=== PATIENT | female | born 1955 | race Caucasian/White ===

== ENCOUNTER 2021-12-15 09:45 | Outpatient (RCR) | payer MEDICARE, SELFPAY ==
--- NOTE | 2021-11-24 18:06 | PT.OPE ---
PT [facility] Outpatient Eval PT [facility] Outpatient Eval Start: 11/24/21 17:19 Freq: Status: Active Protocol: Document 11/24/21 17:20 MARILYNN (Rec: 11/24/21 18:01 MARILYNN Desktop) E-signed By Addison Quarles, PT, ATC Physical Therapy Outpatient Evaluation Insurance Information Recert Due Date 02/24/23 Insurance Name Medicare B Medical Diagnosis R10.31 R lower quadrant pain Treating Diagnosis R groin, thigh, lower leg and foot pain. Referring MD García Subjective Subjective Described as sharp and intense. Sitting always causes symptoms , especially in car. Steroid pack taken last week effective at lessening intensity but it has returned now that she's completed the medication. Pain Comments Range 0-10 Date of Last Physician Visit 11/19/21 Current Work Status Retired Precautions Weight Bearing Status Full Weight Bearing Therapy Limitations/Systems Review Not Limited Objective Range of Motion Trunk ROM WNL's, no pattern caused her symptoms. Passive Hip FLEX, ADDUC and ER created groin pain. Strength R hip FLEX, ABD, ADDUC 4-/5, limited by weakness and pain. L hip and remaining R hip patterns 4+/5. (patient deconditioned) Palpation Tender to light and deep pressure over R gluteus medius , sofi and piriformis. Also tender over hip flexor origin , greater trochanteric bursa and adductor insertion. Balance & Gait Gait is very guarded without any trunk:pelvis rotation. Decreased R leg WB'ing, shortened stride. R knee valgus. Posture Stands with increased lumbar lordosis. Obese Legs possess generalized swelling Sensation/Reflexes Sensation normal and symetric between LE's. Unable to elicit patella or achilles DTR, likely due to inflamation. Other/Pertinent Objective Very difficult to assess R hip flexibility as R knee DJD presence limited both flex and varus motion. R hip did not identify any labral involvement with joint mobility or rotation tests. R anterior iliac rotation, apparent leg length discrepancy in supine. Tight R and L hip flexors and quadriceps. Assessment Assessment/Impression Adelina is a pleasant 66 year old retired woman experiencing intense R inner groin and thigh pain primarily with sitting. Onset of symptoms occurred in August-September while performing water aerobics for her R knee pain. Treadmill work and repeated hip motion seemed to be the cause. PMHx includes:low back surgery (she thinks a discectomy) in 1994 and L ERICA in 2017. She has been receiving R and L knee cortisone injections the past few years. Current symptoms occur after sitting 5-10 minutes, she needs to stand and walk to lessen them. Laying down in side lying also relieves symptoms. Medrol Dosepak and muscle relaxers were effective in lessening pain intensity and delaying onset of symptoms. Difficult to identify source of Adelina's pain. Definitely tender and tight in the R gluteal muscles as well as the R hip capsule. She could be getting some anterior hip impingement from the hip flexion position. Pelvic asymetry seems a direct result of tight hip muscles and repeated guarding over the past 8 weeks. Because she doesn't have any difficulty with back extension motions or positions, I don't feel DJD or stenosis is the cause of her symptoms. A PT program focused towards loosening tight R hip muscles and muscle strengthening of the hip and trunk should be first addressed in the plan of care. Primary Functional Limitations sustained sitting driving Plan of Care Rehabilitation Potential Fair Physical Therapy Goals 1.Decrease R hip and leg pain to 4/10 or less permitting her to sit uninterrupted through a meal. 2.Ability to perform car transfers and sitting x 20 minutes without R hip or leg pain > 4/10. 3.Petroleum with her HEP for core stabilization, hip strengthening and hip stretching. Coordination/Communication With Referral Source Evaluation Billing Untimed Code Treatment Minutes 40 PT Eval No Charge No Complexity Low Certification Information Initial Certification Date 11/24/21 Ending Certification Date 02/24/22
== END 2021-12-16 09:47 | disposition home or self-care (01) ==
PROVIDERS: PCP Family Medicine; Visit Provider Orthopaedic Surgery
DX: R10.31 Right lower quadrant pain (principal); M79.671 Pain in right foot; Z51.89 Encounter for other specified aftercare
CPT/HCPCS: 97110; 97140; 97161

== ENCOUNTER 2022-01-20 08:55 | Day surgery (SDC) | payer MEDICARE, SELFPAY ==
[2022-01-20] VITALS (26 sets, daily range): BP systolic 86–162; BP diastolic 48–105; PULSE 47–95; RESP 16–18; TEMP 36.3–36.6; O2SAT 94–99; BMI 37.2
[2022-01-20] MEDS: ACETAMINOPHEN 500 MG TABLET 1000 MG PO ×3 (09:22→23:39)
[2022-01-20] MEDS: CELECOXIB 200 MG CAPSULE PO ×2 (09:23→21:08)
[2022-01-20] MEDS: OXYCODONE (CR) 10 MG TAB.ER.12H PO (09:23)
[2022-01-20] MEDS: SODIUM CHLORIDE 0.9 % (FLUSH) 10 ML SYRINGE IVF (09:30)
[2022-01-20] MEDS: LACTATED RINGERS 1000 ML 1,000 ML 100 ML IV (09:30)
--- NOTE | 2022-01-20 10:13 | SUR.PREOP ---
Per Dr. García, OK for patient to wear her own TEDS instead of the ones provided by the hospital.
[2022-01-20] MEDS: MIDAZOLAM HCL 1 MG/ML inj IVP (10:40)
[2022-01-20] MEDS: fentaNYL 100 MCG/2 ML inj IVP (10:40)
--- NOTE | 2022-01-20 10:40 | SUR.PREOP ---
TIME?OUT:?1039 PT/Veronique DAVILA RN/Jorge LEMA MDA?VERIFICATION?OF?SURGICAL?SITE,?PROCEDURE,?AND?CONSENT OBTAINED?PRIOR?TO?INVASIVE?PROCEDURE.
[2022-01-20] MEDS: CEFAZOLIN 2 GM INJ IVP (11:37)
--- NOTE | 2022-01-20 12:25 | XR_ITS ---
Patient: KATE SYED Facility:?[facility] Patient ID:?[id number] Site Patient ID:?[id number]. Site :?[id number] Study:?XRay-Knee Right 2 VIEW-01/20/2022 2:08:44 PM Ordering Physician:Luigi Morrow Final Report: Indication: Postop Technique: Two views right knee Findings/Impression: Hardware from a right total knee arthroplasty arthroplasty is in satisfactory position. Bone alignment is normal. No sign of acute fracture. Postop changes are within normal limits. Dictated by Zaire Collazo MD @ 01/21/2022 3:25:37 PM Signed by:?Zaire Collazo MD @01/21/2022 3:25:37 PM (Electronic Signature)
--- NOTE | 2022-01-20 12:37 | W.PM.NB ---
Nerve Block Nerve Block Date Seen: 01/20/22 Type of block requested by surgeon for post-operative analgesia: adductor canal Side: right Time out performed: Yes Verification of patient name: Yes Verification of date of : Yes Site marking: site marked Name of person performing procedure: Isac Continuous monitoring Was continuous monitoring of O2 sat, B/P, cardiac surgeon, recorded every 15 minutes?: Yes Procedure Checklist: sterile prep, needles and gloves Ultrasound guided. Images saved: Yes Medications given in 5ml increments after negative aspiration: Ropivicaine %: 0.5 mL: 20 Needle gauge: 20 Decadron (mg): 10 Precedex (mcg): 25 Patient tolerated procedure well: Yes Additional comments: Needle noted adjacent to nerve Block Charges Block Charge (with Pro Fee): Femoral Nerve Use of Ultrasound Machine for Block: Yes- US Guidance/pain block
--- NOTE | 2022-01-20 12:38 | W.PM.NB ---
Nerve Block Nerve Block Date Seen: 01/20/22 Type of block requested by surgeon for post-operative analgesia: geniculars Side: right Time out performed: Yes Verification of patient name: Yes Verification of date of : Yes Site marking: site marked Name of person performing procedure: Isac Continuous monitoring Was continuous monitoring of O2 sat, B/P, groundwater monitoring technician, recorded every 15 minutes?: Yes Procedure Checklist: sterile prep, needles and gloves Medications given in 5ml increments after negative aspiration: Ropivicaine %: 0.5 mL: 9 Needle gauge: 25 Patient tolerated procedure well: Yes Block Charges Block Charge (with Pro Fee): Genicular Nerve Block Use of Ultrasound Machine for Block: No
--- NOTE | 2022-01-20 13:05 | P.ORPRC_ITS ---
Procedure Note Date of procedure: 01/20/22
--- NOTE | 2022-01-20 13:05 | PM.ORPRC ---
Procedure Note Date of procedure: 01/20/22
--- NOTE | 2022-01-20 13:07 | PM.ORPRC ---
Procedure Note Date of procedure: 01/20/22 Procedure: SURGEON: Cristhian García MD LEGAL PROCESS SPECIALIST: HERMILO Aldana PREOPERATIVE DIAGNOSIS: Right knee osteoarthritis POSTOPERATIVE DIAGNOSIS: Right knee osteoarthritis NAME OF OPERATION: Right total knee arthroplasty ANESTHESIA: Spinal ESTIMATED BLOOD LOSS: 0 mL COMPLICATIONS: None SPECIMENS: None DRAINS: None PREOPERATIVE ANTIBIOTICS: Ancef 2 grams IMPLANTS: 1. J&J Attune # 7 posterior stabilized femur 2. #6 fixed-bearing tibia 3. # 7 posterior stabilized, 5 mm fixed-bearing polyethylene 4. 35 patella INDICATIONS: The patient is a 66-year-old female with a longstanding history of severe, unrelenting right knee pain secondary to end-stage (grade IV) right knee osteoarthritis. Despite appropriate nonoperative management, including activity modification, anti-inflammatories, [id number] pain medication, bracing, physical therapy, and injections they continue to have pain and disability. Operative intervention was offered. The risks, benefits and expected outcomes were discussed in detail. These included but were not limited to: Infection, bleeding, injury to blood vessel or nerve, venous thromboembolism. All questions were answered to their satisfaction. A modifier 22 is appropriate for this case. The patient has a weight of 108 kg, with a BMI of 37 kg/meter squared. There was a 50 mm thick layer of adipose over the extensor mechanism. These factors made the exposure quite difficult and added more than 50% of the time typically required to complete the case. Use of an assistant field hockey coach was necessary throughout the case for patient positioning and safety, soft tissue retraction, and closure. PROCEDURE: Spinal anesthesia was administered. The patient was placed supine on the operating table. The assistant field hockey coach made sure the patient was positioned appropriately. The lower extremity was prepped and draped in the usual sterile fashion. The limb was exsanguinated with the Ferny bandage. The pneumatic tourniquet was inflated to 300 mmHg. A standard anterior incision was made with the knee in flexion. Subcutaneous dissection was sharply taken through fascial layer #1. Full-thickness medial and lateral flaps were elevated. The assistant field hockey coach retracted the soft tissues and protected them throughout the case. A standard medial parapatellar approach was made. The patella was everted. The infrapatellar fat pad was preserved. The menisci and cruciate ligaments were sharply d?brided. Marginal osteophytes were d?brided with the rongeur. The drill was used to penetrate the femoral canal. The canal was aspirated and irrigated with pulse lavage. The intramedullary femoral guide was placed for a 5-degree valgus cut, removing 11 mm off the distal femur. The saw was used to make the cut. Whitesides line and the trans epicondylar axis were marked. The femoral sizing guide was pinned onto the distal femur. Three degrees of external rotation nicely parallels the transepicondylar axis. Pins were placed for posterior referencing. The four-in-one cutting guide was pinned onto the distal femur. The anterior, posterior, and chamfer cuts were made. The assistant field hockey coach protected the collateral ligaments. The box cutting guide was pinned. The box cuts were made. The boxed trial was placed and was an excellent fit. Drill holes for the lugs were made. Attention was then turned to the proximal tibia. The extramedullary tibial guide was placed for a neutral varus/valgus cut with 5 degrees of posterior slope, removing 4 mm based off the medial tibial surface. The assistant field hockey coach protected the collateral ligaments and the neurovascular bundle. The saw was used to make the cut. Trial components were placed. The knee was tight in both flexion and extension. Therefore, we replaced the tibial cutting guide, advancing it 2 more mm distally. The saw was used to make the cut again. Trial components were placed and now the knee is nicely balanced in both flexion and extension. The trial components were removed. The tray was pinned by the assistant field hockey coach and the drill and the punch were used. The tray was removed. The punch was used again. We placed a bone plug in the femoral canal. Attention was then turned to the patella. [place] patellar thickness was 22 mm. The lobster claw resection guide was used with the 9.5 mm hardik. The saw was used to make the cut. Drill holes were made by the assistant field hockey coach. The trial was placed and was an excellent fit. Cancellous surfaces were irrigated with pulse lavage and thoroughly dried by the assistant field hockey coach. We cemented the tibial component, then the femoral component. A trial spacer was placed. The knee was brought into full extension. We then cemented the patellar component. Excessive cement was removed. The cement was allowed to harden. Any remaining excessive cement was removed with the osteotome. We impacted the 5 mm polyethylene onto the tibial tray. The knee was taken through a range of motion and was found to be nicely balanced in both flexion and extension. The patella tracks centrally. The assistant field hockey coach did a three minute dilute Betadine solution soak. The assistant field hockey coach irrigated the wound with 3 liters of normal saline via pulse lavage. The assistant field hockey coach reapproximated the extensor mechanism with #1 Vicryl in an interrupted [id number] fashion. The assistant field hockey coach then ran the extensor mechanism with a #1 PDO Stratafix. The assistant field hockey coach closed the subcutaneous tissues with a 3-0 Stratafix and the skin with a running 3-0 Stratafix in a subcuticular fashion. Glue was used to seal the skin. The assistant field hockey coach placed a dry dressing, JYOTI stocking, and Polar Care. Sponge and needle counts were correct x2. The patient tolerated the procedure well. There were no apparent complications. They were carefully transferred to the hospital bed and taken to the postanesthesia care unit in satisfactory condition. PLAN: The patient will be mobilized with physical therapy. Aspirin will be used for DVT prophylaxis. They will be discharged to home once medically appropriate.
--- NOTE | 2022-01-20 13:56 | W.ANESCHARGE ---
Anesthesia Charges Start Date/Time Anesthesia Start Date: 01/20/22 Anesthesia Start Time: 11:26 Stop Date/Time Anesthesia Stop Date: 01/20/22 Anesthesia Stop Time: 13:52 Summary Emergency: No
--- NOTE | 2022-01-20 15:18 | W.ANESCHARGE ---
Anesthesia Charges Start Date/Time Anesthesia Start Date: 01/20/22 Anesthesia Start Time: 11:26 Stop Date/Time Anesthesia Stop Date: 01/20/22 Anesthesia Stop Time: 13:52 Summary Emergency: No
[2022-01-20] MEDS: HYDROmorphone 0.5 mg/0.5 ml inj IVP (15:30)
--- NOTE | 2022-01-20 16:04 | P.IMCN_ITS ---
Date of Consult Consult date: 01/20/22 Requesting Physician: Orthopedics Primary Care Provider: Earnestine Chavarria MD Consult Narrative Narrative: HOSPITALIST CONSULT Hospital Day # 1 Post Op Day # 0 NAME OF OPERATION:? Right total knee arthroplasty ANESTHESIA:? Spinal ESTIMATED BLOOD LOSS:? 0 mL COMPLICATIONS:? None SPECIMENS:? None DRAINS:? None PREOPERATIVE ANTIBIOTICS:? Ancef 2 grams The hospital medicine team was asked by orthopedic surgery orthopedic surgery team to manage the patient's non-STEMI, AFib, chronic lymphedema, chronic anticoagulation and antiarrhythmic therapy [facility] and Medications and Allergies in the Expanse tabs REVIEW OF SYSTEMS: 12-point ROS completed with patient and negative unless otherwise stated in HPI or below. PHYSICAL EXAM: CODE STATUS: FULL CODE CONSTITUTIONAL: Conversive, good historian. A/O. Knows setting and context. Comfortable. VITAL SIGNS: see record. HEENT: Normocephalic, atraumatic. PERRL, EOMI, conjunctivae pink, no scleral icterus. Ears and nose externally normal. Pharynx normal. NECK: No JVD. No carotid bruit, no thyromegaly, no adenopathy. CHEST: Clear to auscultation bilaterally HEART: No harsh murmurs. S1/S2. ABDOMEN: Flat, soft, nontender. Normal bowel sounds. Moderately obese. EXTREMITIES: Chronic lymphedema noted bilaterally. MUSCULOSKELETAL: Surgical dressing in place without obvious hematoma or neurovascular compromise. NEURO: Cranial nerves intact. Normal affect. No gross deficits. Speech intelligible. SKIN: No rashes, petechiae, concerning changes PSYCHIATRIC: Euthymic. INVESTIGATIONS: EMR Reviewed, placing on telemetry DISPOSITION: MedSurg Recovery; Discharge tomorrow DVT: Agree with ortho plan for DVT prevention, restarting Xarelto in the morning GI: PO intake PFSH PFSH Medical History Acquired lymphedema of lower extremity CAD (coronary artery disease) High cholesterol Non-ST elevation (NSTEMI) myocardial infarction LUCIANA (obstructive sleep apnea) Vertigo Surgical History H/O cardiac radiofrequency ablation History of coronary artery stent placement Hx of colonoscopy Hx of hysterectomy Hx of lumbar discectomy S/P total left hip arthroplasty Status post total knee replacement, right Family History Brother Myocardial infarction Lymphoma Mother Myocardial infarction Venous ulcers of both lower extremities Sister Myocardial infarction History of kidney transplant Pacemaker Father Rheumatoid arthritis Atherosclerosis Social History Smoking Status: Former smoker Do you use any of these nicotine containing products: None How often do you have a drink containing alcohol: monthly or less Alcohol type: beer and hard liquor How many standard drinks containing alcohol do you have on a typical day: 1 or 2 How often do you have six or more drinks on one occasion: Never AUDIT-C Alcohol total score: 1 Non-prescribed substance use: denies use Caffeine: Yes (coffee, 2 cups/day) Meds Home Medications and Allergies Home Medications Medication Instructions Recorded Confirmed Type atorvastatin 40 mg tablet 40 mg PO HS 11/19/21 01/20/22 History rivaroxaban 20 mg tablet 20 mg PO DAILY 11/19/21 01/20/22 History ammonium lactate 12 % topical cream 1 applic topical BID PRN 01/20/22 01/20/22 History amoxicillin 500 mg capsule 2,000 mg PO PRN 01/20/22 01/20/22 History cholecalciferol (vitamin D3) 25 25 mcg PO DAILY 01/20/22 01/20/22 History mcg (1,000 unit) capsule multivitamin (Daily Multi-Vitamin 1 tab PO DAILY 01/20/22 01/20/22 History tablet) nitroglycerin 0.4 mg sublingual 0.4 mg sublingual Q5M PRN 01/20/22 01/20/22 History tablet sotalol 80 mg tablet 40 mg PO BID 01/20/22 01/20/22 History Allergies Allergy/AdvReac Type Severity Reaction Status Date / Time No Known Allergies Allergy Verified 01/20/22 09:10 Exam Const: Vital Signs, click to edit/add: Vital Signs - 24 hr 01/20/22 09:56 01/20/22 10:39 01/20/22 10:45 Temperature 97.9 F Pulse Rate 95 52 L 50 L Respiratory Rate 18 18 18 Blood Pressure 133/69 151/73 H 107/55 L Blood Pressure [Ri ght Arm] Pulse Oximetry 96 98 99 Oxygen Delivery Me thod Room Air Nasal Cannula Nasal Cannula Oxygen Flow Rate 2 2 01/20/22 11:00 01/20/22 11:15 01/20/22 13:52 Temperature Pulse Rate 47 L 50 L 63 Respiratory Rate 18 18 16 Blood Pressure 86/48 L 92/53 L 112/65 Blood Pressure [Ri ght Arm] Pulse Oximetry 98 99 96 Oxygen Delivery Me thod Nasal Cannula Nasal Cannula Room Air Oxygen Flow Rate 2 2 01/20/22 13:55 01/20/22 14:05 01/20/22 13:46 Temperature 97.6 F Pulse Rate 57 L 60 53 L Respiratory Rate 16 16 16 Blood Pressure 116/74 122/76 112/60 Blood Pressure [Ri ght Arm] Pulse Oximetry 96 95 95 Oxygen Delivery Me thod Room Air Room Air Room Air Oxygen Flow Rate 01/20/22 14:00 01/20/22 14:10 01/20/22 14:15 Temperature 97.5 F L Pulse Rate 57 L 61 60 Respiratory Rate 16 16 16 Blood Pressure 97/52 L 117/105 H 132/80 Blood Pressure [Ri ght Arm] Pulse Oximetry 94 96 96 Oxygen Delivery Me thod Room Air Room Air Room Air Oxygen Flow Rate 01/20/22 14:20 01/20/22 14:25 01/20/22 14:31 Temperature 97.5 F L Pulse Rate 50 L 65 57 L Respiratory Rate 16 16 18 Blood Pressure 135/82 133/92 H Blood Pressure [Ri ght Arm] 133/79 Pulse Oximetry 96 97 Oxygen Delivery Me thod Room Air Room Air Room Air Oxygen Flow Rate Assessment and Plan Assessment and plan (1) Status post total knee replacement, right: Problem comment: 01/15 Hospital medicine is happy to follow this patient through to discharge. I will place her on telemetry. We will continue her sotalol at 40 mg b.i.d.. She can resume her Xarelto therapy tomorrow for both her AFib stroke prevention and DVT prophylaxis from her knee replacement. Status: Acute (2) CAD (coronary artery disease): Problem comment: NSTEMI in the setting of new AFIB with RVR in 2016. stent placed in 2016 left circumflex disease Status: Acute (3) LUCIANA (obstructive sleep apnea): Problem comment: Patient brought her home unit. Status: Acute (4) Atrial fibrillation: Problem comment: May 11 first presentation. elevated trop -> cath -> severe dz in the left circumflex/stented. converted spontaneously. returned in Afib w/RVR despite sotalol therapy; complex ablation in 08/10. AFib returned; now on OAC and sotalol. Will place the patient on telemetry. Status: Acute (5) Acquired lymphedema of lower extremity: Problem comment: both legs since 2006 Status: Acute
[2022-01-20] MEDS: OXYCODONE 5 MG TABLET PO ×2 (16:07→23:39)
[2022-01-20] MEDS: CEFAZOLIN 2 GM in 0.9 % SODIUM CHLORIDE Mini-bag 100 ML IVPB (17:45)
--- NOTE | 2022-01-20 18:29 | PC.NURSE ---
PATIENT TO FLOOR AROUND 1430, ALERT AND ORIENTED, PLEASANT AND COOPERATIVE, UP A1 WALKER AND BELT TOLERATED WELL, DRESSING INITIALLY CDI AROUND 1800 SMALL AMOUNT OF DRAINAGE CIRCLED, TOLERATED REGULAR DIET, DECLINED NAUSEA, NO LIGHTHEADEDNESS AND DIZZINESS, PAIN TO RIGHT KNEE 2-5/10 BEING MANAGED PRN OXYCODONE AND SCHEDULED TYLENOL.
[2022-01-20] MEDS: ATORVASTATIN CALCIUM 40 MG TABLET PO (21:07)
[2022-01-20] MEDS: SOTALOL HCL 80 MG TABLET 40 MG PO (21:08)
[2022-01-21] MEDS: CEFAZOLIN 2 GM in 0.9 % SODIUM CHLORIDE Mini-bag 100 ML IVPB ×2 (02:09→09:43)
[2022-01-21] MEDS: HYDROmorphone 0.5 mg/0.5 ml inj IVP (02:19)
[2022-01-21 03:00] VITALS: BP 130/61; PULSE 60; RESP 16; TEMP 36.5; O2SAT 97
[2022-01-21] MEDS: ACETAMINOPHEN 500 MG TABLET 1000 MG PO (05:46)
[2022-01-21 07:00] VITALS: BP 142/74; PULSE 63; PULSE 71; RESP 20; TEMP 36.3; O2SAT 98
[2022-01-21 07:08] LABS: Basophils Percent Auto 0.1 % (0.0-3.0); Hematocrit 36.3 % (33.0-51.0); Hemoglobin* 11.9 gm/dL (12.0-16.0); Immature Granulocytes Abs Auto 0.03 K/uL (0.00-0.30); Lymphocytes Percent Auto 5.5 % (20-44); Mean Corpuscular HGB Conc 33 gm/dL (32-36); Mean Corpuscular Hemoglobin 29 pg (26-34); Mean Corpuscular Volume 88 fL (80-100); Monocytes Percent Auto 7.1 % (0.0-11.0); Platelet Count* 207 K/uL (140-440); Red Blood Count 4.11 m/uL (4.00-5.20); White Blood Count* 11.63 K/uL (4.50-11.00)
[2022-01-21 07:25] LABS: Potassium* 3.7 mmol/L (3.6-5.1); Sodium* 134 mmol/L (135-149)
[2022-01-21 07:28] LABS: Blood Urea Nitrogen* 15 mg/dL (7-30); Creatinine* 0.6 mg/dL (0.5-1.5); Est. Creatinine Clearance* 52.36; Estimated Glomerular Filt Rate 98 ml/min
[2022-01-21 07:32] LABS: Slide Review Reflex No
[2022-01-21 07:45] LABS: INR 1.15 (0.91-1.10); Prothrombin Time 15.1 Seconds
--- NOTE | 2022-01-21 08:56 | PM.ORPN ---
Subjective Subjective Time Seen by Provider: 07:15 Date Seen: 01/21/22 Principal diagnosis: Post right total knee arthroplasty Interval history: Adelina is comfortable this morning. She has family assistance at home and will be planning on discharging to home likely today. Ortho Exam Narrative Exam Narrative: Alert and oriented x3. Patient is in no acute distress. Converses without labored breathing. Hearing is grossly intact. Examination of the right knee shows the dressing is intact. Mild soft tissue edema. Mild effusion. CMS is intact right lower extremity. Bilateral calves are soft and nontender Const Vital Signs, click to edit/add: Vital Signs - 24 hr 01/20/22 09:56 01/20/22 10:39 01/20/22 10:45 Temperature 97.9 F Pulse Rate 95 52 L 50 L Pulse Rate [Pulse Oximeter] Respiratory Rate 18 18 18 Blood Pressure 133/69 151/73 H 107/55 L Blood Pressure [Right Arm] Pulse Oximetry 96 98 99 Oxygen Delivery Method Room Air Nasal Cannula Nasal Cannula Oxygen Flow Rate 2 2 01/20/22 11:00 01/20/22 11:15 01/20/22 13:52 Temperature Pulse Rate 47 L 50 L 63 Pulse Rate [Pulse Oximeter] Respiratory Rate 18 18 16 Blood Pressure 86/48 L 92/53 L 112/65 Blood Pressure [Right Arm] Pulse Oximetry 98 99 96 Oxygen Delivery Method Nasal Cannula Nasal Cannula Room Air Oxygen Flow Rate 2 2 01/20/22 13:55 01/20/22 14:05 01/20/22 13:46 Temperature 97.6 F Pulse Rate 57 L 60 53 L Pulse Rate [Pulse Oximeter] Respiratory Rate 16 16 16 Blood Pressure 116/74 122/76 112/60 Blood Pressure [Right Arm] Pulse Oximetry 96 95 95 Oxygen Delivery Method Room Air Room Air Room Air Oxygen Flow Rate 01/20/22 14:00 01/20/22 14:10 01/20/22 14:15 Temperature 97.5 F L Pulse Rate 57 L 61 60 Pulse Rate [Pulse Oximeter] Respiratory Rate 16 16 16 Blood Pressure 97/52 L 117/105 H 132/80 Blood Pressure [Right Arm] Pulse Oximetry 94 96 96 Oxygen Delivery Method Room Air Room Air Room Air Oxygen Flow Rate 01/20/22 14:20 01/20/22 14:25 01/20/22 14:31 Temperature 97.5 F L Pulse Rate 50 L 65 57 L Pulse Rate [Pulse Oximeter] Respiratory Rate 16 16 18 Blood Pressure 135/82 133/92 H Blood Pressure [Right Arm] 133/79 Pulse Oximetry 96 97 Oxygen Delivery Method Room Air Room Air Room Air Oxygen Flow Rate 01/20/22 14:45 01/20/22 15:15 01/20/22 15:30 Temperature Pulse Rate Pulse Rate [Pulse Oximeter] 56 L 54 L 55 L Respiratory Rate 18 16 16 Blood Pressure Blood Pressure [Right Arm] 141/76 H 160/83 H Pulse Oximetry 96 99 98 Oxygen Delivery Method Room Air Room Air Room Air Oxygen Flow Rate 01/20/22 15:00 01/20/22 16:00 01/20/22 16:30 Temperature Pulse Rate Pulse Rate [Pulse Oximeter] 57 L 59 L 54 L Respiratory Rate 18 16 16 Blood Pressure Blood Pressure [Right Arm] 136/74 152/71 H 149/75 H Pulse Oximetry 95 96 94 Oxygen Delivery Method Room Air Room Air Room Air Oxygen Flow Rate 01/20/22 17:00 01/20/22 18:00 01/20/22 19:00 Temperature 97.3 F L 98 F Pulse Rate Pulse Rate [Pulse Oximeter] 56 L 68 69 Respiratory Rate 16 16 16 Blood Pressure Blood Pressure [Right Arm] 112/82 162/98 H 113/97 H Pulse Oximetry 97 96 96 Oxygen Delivery Method Room Air Room Air Room Air Oxygen Flow Rate 01/20/22 20:00 01/20/22 23:00 01/20/22 23:00 Temperature 97.8 F Pulse Rate 65 Pulse Rate [Pulse Oximeter] 68 65 Respiratory Rate 16 16 Blood Pressure Blood Pressure [Right Arm] 146/69 H Pulse Oximetry 98 Oxygen Delivery Method Room Air Oxygen Flow Rate 01/20/22 23:00 01/21/22 03:00 01/21/22 07:00 Temperature 97.8 F 97.7 F 97.3 F L Pulse Rate Pulse Rate [Pulse Oximeter] 65 60 71 Respiratory Rate 16 16 20 Blood Pressure Blood Pressure [Right Arm] 150/68 H 130/61 142/74 H Pulse Oximetry 99 97 98 Oxygen Delivery Method Room Air Room Air Room Air Oxygen Flow Rate 01/21/22 07:00 Temperature Pulse Rate Pulse Rate [Pulse Oximeter] 71 Respiratory Rate 20 Blood Pressure Blood Pressure [Right Arm] Pulse Oximetry Oxygen Delivery Method Oxygen Flow Rate Assessment and Plan Assessment and plan (1) Status post total knee replacement, right: Problem details: 01/20/2022 Status: Acute Assessment and Plan: Plan for discharge is today to home if she meets discharge criteria. DVT prophylaxis includes Xarelto 20 mg, she has been on this medication prior to surgery, Mariusz stockings x1 month may remove for 1 hr per day, frequent ambulation Remove dressing in 1 week. Observe wound and phone Orthopedics with any questions or concerns Return to clinic in 1 week for a wound check Return to clinic in [address] García Minimize narcotic use. Wean off and discontinue soon as possible. Activities as tolerated. No strenuous activity. Outpatient physical therapy as scheduled. Ice and elevate the operative extremity. No restriction on ice. (2) CAD (coronary artery disease): Problem details: NSTEMI in the setting of new AFIB with RVR in 2015. stent placed in 2016 left circumflex disease Status: Acute (3) LUCIANA (obstructive sleep apnea): Problem details: Patient brought her home unit. Status: Acute (4) Atrial fibrillation: Problem details: May 11 first presentation. elevated trop -> cath -> severe dz in the left circumflex/stented. converted spontaneously. returned in Afib w/RVR despite sotalol therapy; complex ablation in 08/10. AFib returned; now on OAC and sotalol. Will place the patient on telemetry. Status: Acute (5) Acquired lymphedema of lower extremity: Problem details: both legs since 2006 Status: Acute
[2022-01-21] MEDS: SOTALOL HCL 80 MG TABLET 40 MG PO (09:42)
[2022-01-21] MEDS: CELECOXIB 200 MG CAPSULE PO (09:44)
[2022-01-21] MEDS: SENNOSIDES 1 TAB TABLET 2 TAB PO (09:44)
[2022-01-21] MEDS: OXYCODONE 5 MG TABLET PO (09:45)
== END 2022-01-21 11:21 | disposition home or self-care (01) ==
LOC: OR 08:56 → MEDSURG 13:27
PROVIDERS: PCP Family Medicine; Visit Provider Orthopaedic Surgery
PROC: (CPT 27447; principal; 2022-01-20 10:45)
DX: M17.11 Unilateral primary osteoarthritis, right knee (principal); I25.10 Atherosclerotic heart disease of native coronary artery without angina pectoris; G47.33 Obstructive sleep apnea (adult) (pediatric); I48.91 Unspecified atrial fibrillation; I89.0 Lymphedema, not elsewhere classified; Z79.01 Long term (current) use of anticoagulants; I25.2 Old myocardial infarction
CPT/HCPCS: 27447; 01402; 36415; 64447; 64454; 73560; 76942; 82565; 84132; 84295; 84520; 85025; 85610; 97110; 97116; 97161; 97165; A9270; C1776; J0690; J1100; J1170; J2250; J2704; J2795; J3010; J7120

== ENCOUNTER 2022-04-06 08:15 | Outpatient (RCR) | payer MEDICARE, SELFPAY ==
--- NOTE | 2022-01-07 12:39 | PT.OPE ---
PT [facility] Outpatient Eval PT [facility] Outpatient Eval Start: 01/07/22 11:02 Freq: Status: Active Protocol: Document 01/07/22 11:14 THEO (Rec: 01/07/22 12:13 THEO Desktop) E-signed By Addison Quarles, PT, ATC Physical Therapy Outpatient Evaluation Insurance Information Recert Due Date 04/08/22 Insurance Name Medicare B Medical Diagnosis End-stage lateral and patellofemoral compartment osteoarthritis with bone-on- bone joint space narrowing. Treating Diagnosis R knee pain R knee stiffness Referring MD García Subjective Subjective R knee pain and stiffness exceeding one year. Cortisone injection in July was effective but knee again worsened when beginning Aquatic Therapy in September. Treated for R hip bursitis mid summer-October. Determined that compensation for R knee O.A. was likely the primary cause for the R hip symptoms. Saw Dr Azeem García who decided to perform the R TKA on 01/20/22. Adelina was content with the plan for surgery. Now she has some concern for the initial pain symptoms that will likely follow the upcoming procedure. Pain Comments Average pain, daily ache 4/ 10 High 10/10 Date of Last Physician Visit 11/26/21 Date of Next Physician Visit 01/20/22 Date of Surgery (If applicable) 01/20/22 Current Work Status Retired Preferred Name Adelina Precautions Weight Bearing Status Full Weight Bearing Therapy Limitations/Systems Review Not Limited Objective Range of Motion R 5-100 degrees Strength R hip 5/5 all patterns, Flex and Adduc create inner groin soreness. R knee ext 4/5, flex 5/5, L knee 5/5 ext and flex Palpation Tender along medial joint line and inferiomedial patella Balance & Gait Walks without assistive device with symmetric LE mechanics. Decreased arm swing or trunk rotation. Posture Slight increase is size vs L knee. Active R terminal ext deficit in standing and walking. Assessment Assessment/Impression Adelina is a pleasant 66 year old woman referred today for pre -op TKA training. She is well known in therapy because of treatment she received this summer for her R hip. She is looking forward to her upcoming procedure knowing her pain should lessen once performed and lead to improved overall function. She struggles with most mobility- extended walking, squatting to access lower cupboards and climbing/descending stairs. Her R hip symptoms were thought to be a direct source of compensation for the R knee OA. Following todays visit, I am confident in her preparation for her procedure both mentally and physically. She demonstrates safe and effective transfers, gait using the walker and proper sequencing with stairs. We will follow up with her again in PT two days after her R TKA procedure. Primary Functional Limitations Stairs, ascent > descent Squatting for bottom cupboards Car transfers Plan of Care Rehabilitation Potential Excellent Physical Therapy Goals 1.To perform and demonstrate independence with her home program for TKA phase 1 ex.s following her pre-op visit. 2.Demonstrate correct usage of front wheeled walker x 250 feet. 3.Demonstrate proper sit to/ from stand performance-placing involved leg out and in safe position. Coordination/Communication With Referral Source Treatment Plan/Direct Interventions Therapeutic Exercises Frequency/Duration Single visit pre-op 2x/week x 8-10 weeks post op 1x week week 11-16 if needed. Patient Will Be Discharged From Therapy Independent w/HEP, Independently Progressing Evaluation Billing Untimed Code Treatment Minutes 30 PT Eval No Charge No Complexity Low Certification Information Initial Certification Date 01/07/22 Ending Certification Date 04/08/22 Physician Comment/Change Comment or Changes Physician NPI Number #
== END 2022-04-13 16:13 | disposition home or self-care (01) ==
PROVIDERS: PCP Family Medicine; Visit Provider Orthopaedic Surgery
DX: M17.11 Unilateral primary osteoarthritis, right knee (principal); Z51.89 Encounter for other specified aftercare
CPT/HCPCS: 97016; 97110; 97112; 97116; 97140; 97161; 97164

== ENCOUNTER 2023-10-05 06:10 | Day surgery (SDC) | payer MEDICARE, SELFPAY ==
[2023-10-05] VITALS (24 sets, daily range): BP systolic 112–157; BP diastolic 55–99; PULSE 48–70; RESP 16–18; TEMP 35.5–37; O2SAT 95–99; BMI 36.7
[2023-10-05] MEDS: LACTATED RINGERS 1000 ML 1,000 ML 100 ML IV ×2 (06:30→10:46)
[2023-10-05] MEDS: CELECOXIB 200 MG CAPSULE PO (06:32)
[2023-10-05] MEDS: SODIUM CHLORIDE 0.9 % (FLUSH) 10 ML SYRINGE IVF (06:32)
[2023-10-05] MEDS: ACETAMINOPHEN 500 MG TABLET 1000 MG PO ×3 (06:32→18:42)
[2023-10-05] MEDS: OXYCODONE (CR) 10 MG TAB.ER.12H PO (06:32)
[2023-10-05] MEDS: MIDAZOLAM HCL 1 MG/ML inj IVP (07:13)
--- NOTE | 2023-10-05 07:19 | P.NB_ITS ---
Nerve Block Nerve Block Time Seen by Provider: 07:18 Date Seen: 10/05/23 Type of block requested by surgeon for post-operative analgesia: SARA/LFCN Side: right Time out performed: Yes Verification of patient name: Yes Verification of date of : Yes Site marking: site marked Name of person performing procedure: Isac Continuous monitoring Was continuous monitoring of O2 sat, B/P, playground monitor, recorded every 15 minutes?: Yes Procedure Checklist: sterile prep, needles and gloves Ultrasound guided. Images saved: Yes Medications given in 5ml increments after negative aspiration: Ropivicaine %: 0.5 mL: 30 Needle gauge: 20 Decadron (mg): 10 Precedex (mcg): 25 Patient tolerated procedure well: Yes Additional comments: Needle noted below psoas tendon needle noted adjacent to LFCN Block Charges Block Charge (with Pro Fee): Other Periph Nerve Block Use of Ultrasound Machine for Block: Yes- US Guidance/pain block
--- NOTE | 2023-10-05 07:20 | W.ANESCHARGE ---
Anesthesia Charges Start Date/Time Anesthesia Start Date: 10/05/23 Anesthesia Start Time: 11:26 Stop Date/Time Anesthesia Stop Date: 10/05/23 Anesthesia Stop Time: 13:52 Summary Extremes of Age - Over 70 or under 1: MDA
--- NOTE | 2023-10-05 07:21 | SUR.PREOP ---
TIME?OUT:?07 PT/RN/MDA?VERIFICATION?OF?SURGICAL?SITE,?PROCEDURE,?AND?CONSENT OBTAINED?PRIOR?TO?INVASIVE?PROCEDURE.
[2023-10-05] MEDS: fentaNYL 100 MCG/2 ML inj IVP (07:23)
--- NOTE | 2023-10-05 07:45 | CRLHL7_ITS ---
For Patients: As a result of the Cures Act, medical imaging exams and procedure reports are released immediately into your electronic medical record. You may view this report before your referring provider. If you have questions, please contact your health care provider. Indication: Hip replacement surgery Technique: AP hip fluoroscopic image. Fluoroscopy time 67.9 seconds. Findings/Impression: Hardware from a right total hip arthroplasty is in satisfactory position. Dictated by Zaire Collazo MD @ 10/05/2023 12:06:56 PM (Electronically Signed)
[2023-10-05] MEDS: CEFAZOLIN 2 GM INJ IVP (08:03)
[2023-10-05] MEDS: TRANEXAMIC ACID 100 MG/ML INJ 1000 MG IV (08:19)
--- NOTE | 2023-10-05 09:13 | SUR.PREOP ---
No T&S drawn on patient prior to taking back for procedure. Care Manager Cna called back to OR and Dr. García verbalized he did not need it drawn. Care Manager Cna also checked with Anesthesia in room who also agreed T&S did not need to be drawn.
--- NOTE | 2023-10-05 09:47 | CRLHL7_ITS ---
For Patients: As a result of the Century Cures Act, medical imaging exams and procedure reports are released immediately into your electronic medical record. You may view this report before your referring provider. If you have questions, please contact your health care provider. Indication: POST OP RIGHT HIP Technique: AP hip centered pelvic film and lateral view right hip. Findings/Impression: Hardware from a right total hip arthroplasty is in satisfactory position. Bone alignment is normal. No sign of acute fracture. Postop changes are within normal limits. Dictated by Zaire Collazo MD @ 10/05/2023 12:07:53 PM (Electronically Signed)
--- NOTE | 2023-10-05 09:50 | PM.ORPRC ---
Procedure Note Date of procedure: 10/05/23 Procedure: PREOPERATIVE DIAGNOSIS: Right hip osteoarthritis POSTOPERATIVE DIAGNOSIS: Right hip osteoarthritis NAME OF OPERATION: Right total hip arthroplasty SURGEON: Cristhian Garíca MD ROUTE DRIVER: Angie Flores PA-C, Amna Levine PA-C IMPLANTS: 1. [employer] [place] # 52 sector ingrowth cup 2. 36 x 52 +4 neutral polyethylene 3. [employer] # 6 standard collared ingrowth stem 4. 36 + 1.5 ceramic femoral head ANESTHESIA: General ESTIMATED BLOOD LOSS: 600 cc COMPLICATIONS: None SPECIMENS: None DRAINS: None PREOPERATIVE ANTIBIOTICS: Ancef 2 grams INDICATIONS: The patient is a 68-year-old with a longstanding history of severe, unrelenting right hip pain secondary to end-stage right hip osteoarthritis. Despite appropriate nonoperative management, including activity modification, use of an assist device, anti-inflammatories, [id number] pain medication, physical therapy and injections, they continue to have pain and disability. Operative intervention was offered. The risks, benefits and expected outcomes were discussed in detail. These included but were not limited to: Infection, bleeding, injury to blood vessel or nerve, venous thromboembolism. All questions were answered to their satisfaction. Use of an criminal legal assistant was necessary throughout the case for patient positioning and safety, soft tissue retraction and closure. A modifier 22 should be added to this case. The patient's weight of 106 kg with a BMI of 37 made exposure quite difficult. This more than doubled the time typically required to complete the case. PROCEDURE: The patient was placed supine on the Lawrence table. General anesthesia was administered. The criminal legal assistant made sure the patient was properly positioned. The right hip was prepped and draped in the usual sterile fashion. The image intensifier was brought in for a perfect AP pelvis and a perfect double tear drop AP view of each hip which were used for intraoperative templating with our fluoroscopic guide. An oblique incision was made 3 cm distal and 3 cm lateral to the anterior superior iliac spine. The criminal legal assistant retracted the soft tissues to protect them. Subcutaneous dissection was taken with electrocautery to the superficial fascia. The fascia was divided in line with the incision. Blunt dissection was carried medially to the tensor fascia marcial and sartorius interval. Deep dissection was carried with electrocautery. The circumflex vessels were cauterized and divided. The capsule was exposed and then divided in a T-fashion, tagged with #1 Ethibond sutures. Retractors were placed in the joint, held by the criminal legal assistant. The corkscrew was placed in the femoral head. The neck cut was made in the subcapital region. We made a second neck cut more distal. The napkin ring of bone was removed. The femoral head was removed intact. Acetabular retractors were placed, held by the criminal legal assistant. The labrum was sharply debrided. The capsule was released. The 43 mm reamer was used to the true medial wall. We then enlarged in 2 mm increments using the image intensifier for our reamer placement. We impacted the cup which had excellent purchase. We placed the polyethylene. Attention was then turned to the proximal femur. The limb was placed in 140 degrees of external rotation, maximum extension and adduction. A significant amount of time was spent releasing the capsule to allow us to deliver the femur into the wound and complete the femoral side safely. Retractors were held by the criminal legal assistant throughout the femoral preparation. The box toe buffer and canal finder were used. Broaches were used to a stable size. The calcar reamer was used. Trial components were placed. The hip was reduced and was found to be stable with appropriate soft tissue tension. Length and offset had been nicely restored using the image intensifier and our fluoroscopic guide. Trial components were removed. The stem was impacted. We placed the femoral head. Again, the hip was reduced and was found to be stable with appropriate soft tissue tension. Length and offset had been nicely restored. The criminal legal assistant did a three minute dilute Betadine solution soak. The criminal legal assistant irrigated the wound with 3 liters of normal saline via pulse lavage. The criminal legal assistant repaired the anterior capsule with a #1 Vicryl and our previously placed Ethibond sutures. The criminal legal assistant closed the fascia over the tensor fascia marcial with a #1 PDO Stratafix, subcutaneous tissues with 2-0 Vicryl, skin with a running 3-0 Stratafix and glue. A dry dressing was applied by the criminal legal assistant. Sponge and needle counts were correct x 2. The patient tolerated the procedure well; there were no apparent complications. They were awakened and extubated in the operating room, sent to the Post-Anesthesia Care Unit in satisfactory condition. PLAN: 1. The patient will be mobilized with physical therapy, weight-bearing as tolerates 2. The usual dose of Eliquis can be restarted for DVT prophylaxis 3. The patient will be discharged once medically appropriate
[2023-10-05] MEDS: fentaNYL 100 MCG/2 ML inj 50 MCG IVP ×2 (10:39→10:40)
[2023-10-05] MEDS: HYDROmorphone 0.5 mg/0.5 ml inj IVP (11:42)
[2023-10-05] MEDS: CEFAZOLIN 2 GM in 0.9 % SODIUM CHLORIDE Mini-bag 100 ML IVPB (16:30)
--- NOTE | 2023-10-05 17:55 | PC.NURSE ---
End of Shift: Patient pleasant and cooperative, A&O. VSS, afebrile. Patient reports pain on her right hip rating a 2 out of 10, declines PRN medication. 1A with walker and gaitbelt to bathroom, tolerated well. Dressing C/D/I.
--- NOTE | 2023-10-05 18:33 | P.IMCN_ITS ---
Date of Consult Patient: Lisa Patient Consult date: 10/05/23 Requesting Physician: Orthopedics Primary Care Provider: Earnestine Chavarria MD Consult Narrative Narrative: Adelina Parisi is a 68 year old female with coronary artery disease, atrial fibrillation, obstructive sleep apnea and chronic lymphedema seen in consultation for management of medical problems following right total hip arthr oplasty. Consultation requested by Dr. García. He performed this procedure today without complications. Estimated blood loss of 600 mL. Postoperatively she reports feeling well except some lightheadedness when she was up to the bathroom. Mild nausea without vomiting. No chills. No dyspnea. Previous orthopedic surgeries without complications. No previous history of problems with anesthesia, bleeding or clotting. Preop physical did not identify any significant medical problems to be addressed in the perioperative. She is on Eliquis for atrial fibrillation and has held that for the last 3 days. Review of Systems Narrative: She reports no recent concerns of illness or injury. She reports her hip pain postoperatively is already better than which she experienced when she came to the hospital today. [facility] Medical History (Updated 10/05/23 @ 18:47 by Ronal Marrero MD) History of common carotid artery stent placement ?Z98.890 - Other specified postprocedural states (ICD-10) ?Z95.828 - Presence of other vascular implants and grafts (ICD-10) Vertigo ?R42 - Dizziness and giddiness (ICD-10) LUCIANA (obstructive sleep apnea) ?G47.33 - Obstructive sleep apnea (adult) (pediatric) (ICD-10) CAD (coronary artery disease) ?I25.10 - Atherosclerotic heart disease of [place] coronary artery without angina pectoris (ICD-10) Acquired lymphedema of lower extremity ?I89.0 - Lymphedema, not elsewhere classified (ICD-10) High cholesterol ?E78.00 - Pure hypercholesterolemia, unspecified (ICD-10) Non-ST elevation (NSTEMI) myocardial infarction ?I21.4 - Non-ST elevation (NSTEMI) myocardial infarction (ICD-10) Surgical History (Updated 10/05/23 @ 18:47 by Ronal Marrero MD) S/P total right hip arthroplasty ?Z96.641 - Presence of right artificial hip joint (ICD-10) S/P ablation of atrial fibrillation ?Z98.890 - Other specified postprocedural states (ICD-10) ?Z86.79 - Personal history of other diseases of the circulatory system (ICD- 10) History of ankle surgery (04/22/23) ?Z98.890 - Other specified postprocedural states (ICD-10) Status post total knee replacement, right (01/20/22) ?Z96.651 - Presence of right artificial knee joint (ICD-10) H/O cardiac radiofrequency ablation ?Z98.890 - Other specified postprocedural states (ICD-10) History of coronary artery stent placement ?Z95.5 - Presence of coronary angioplasty implant and graft (ICD-10) Hx of lumbar discectomy ?Z98.890 - Other specified postprocedural states (ICD-10) Hx of hysterectomy ?Z90.710 - Acquired absence of both cervix and uterus (ICD-10) Hx of colonoscopy ?Z98.890 - Other specified postprocedural states (ICD-10) S/P total left hip arthroplasty (~01/2017) ?Z96.642 - Presence of left artificial hip joint (ICD-10) Family History Brother Myocardial infarction Lymphoma Mother Myocardial infarction Venous ulcers of both lower extremities Sister Myocardial infarction History of kidney transplant Pacemaker Father Rheumatoid arthritis Atherosclerosis Social History (Updated 10/05/23 @ 18:43 by Ronal Marrero MD) Narrative: She lives with her in [place]. They live in a house where she can live on 1 level. , Bebeto, is healthcare power of assistant prosecuting attorney. Code status is full. She is a former cigarette smoker having quit in 2001. She rarely drinks alcohol What is your current living situation?: I presently have a place to live Problems where you live: no known problems Problems where you live details: n/a In the past 12 months, utilities in danger of being shut off: no In past 12 months, lack of transportation kept you from medical appts, meetings, work, or getting things needed for daily living: no In the past 12 mos, have been you worried that your food would run out before you had money to buy more?: never true In the past 12 mos, the food you bought just didn't last and you didn't have money to buy more?: never true Smoking Status: Never smoker Do you use any of these nicotine containing products: None How often do you have a drink containing alcohol: monthly or less Alcohol type: beer and hard liquor How many standard drinks containing alcohol do you have on a typical day: 1 or 2 How often do you have six or more drinks on one occasion: Never AUDIT-C Alcohol total score: 1 Non-prescribed substance use: denies use Caffeine: Yes (2 c/day) How often does anyone, including family, friends and others, physically hurt you : never How often does anyone, including family, friends and others, insult or talk down to you: never How often does anyone, including family, friends and others, threaten you with harm: never How often does anyone, including family, friends and others, scream or curse at you: never service: No Meds Home Medications and Allergies Home Medications ?Medication ?Instructions ?Recorded ?Confirmed ?Type atorvastatin 40 mg tablet 40 mg PO HS 11/19/21 10/05/23 History amoxicillin 500 mg capsule 2,000 mg PO PRN 01/20/22 10/05/23 History cholecalciferol (vitamin D3) 25 25 mcg PO DAILY 01/20/22 10/05/23 History mcg (1,000 unit) capsule multivitamin (Daily Multi-Vitamin 1 tab PO DAILY 01/20/22 10/05/23 History tablet) nitroglycerin 0.4 mg sublingual 0.4 mg sublingual Q5M PRN 01/20/22 10/05/23 History tablet sotalol 80 mg tablet 40 mg PO BID 01/20/22 10/05/23 History apixaban 5 mg tablet 5 mg PO BID 09/28/23 10/05/23 History metoprolol tartrate 25 mg tablet 25 mg PO QDAY PRN atrial 09/28/23 10/05/23 History fibrillation Allergies Allergy/AdvReac Type Severity Reaction Status Date / Time adhesive tape Allergy Mild Verified 10/05/23 06:16 Exam Narrative: Exam Narrative: She is alert and appears in no distress. Speech is normal. Oropharynx with small airway. Neck is supple out mass or adenopathy. Respirations are clear to auscultation. Cardiovascular: S1, S2, somewhat irregular rhythm. No murmur gallop or rub. Abdomen is soft without tenderness or mass. Bowel sounds are active. Right Hip with bandage over anterior incision. No significant drainage bruising or erythema. Distally she has intact pulses and sensation and strength in her feet and ankles. Moderate bilateral leg edema. No rash Const: Vital Signs, click to edit/add: Vital Signs - 24 hr 10/05/23 07:03 10/05/23 07:13 10/05/23 10:39 Temperature 97.6 F 97.2 F L Pulse Rate 67 57 L 60 Pulse Rate [Pulse Oximeter] Respiratory Rate 16 16 16 Blood Pressure 134/65 133/63 141/89 H Pulse Oximetry 97 98 97 [facility] Room Air Room Air 10/05/23 10:40 10/05/23 10:45 10/05/23 10:50 Temperature 97.3 F L Pulse Rate 54 L 53 L 53 L Pulse Rate [Pulse Oximeter] Respiratory Rate 16 16 16 Blood Pressure 139/80 144/99 H 140/89 H Pulse Oximetry 97 99 98 Oxygen Delivery [facility] Room Air Room Air Room Air 10/05/23 10:55 10/05/23 11:00 10/05/23 11:05 Temperature 97.6 F Pulse Rate 51 L 52 L 49 L Pulse Rate [Pulse Oximeter] Respiratory Rate 16 16 16 Blood Pressure 138/72 135/89 145/73 H Pulse Oximetry 98 96 98 [facility] Room Air Room Air Room Air 10/05/23 11:10 10/05/23 11:13 10/05/23 11:21 Temperature Pulse Rate 52 L 50 L Pulse Rate [Pulse Oximeter] Respiratory Rate 16 16 16 Blood Pressure 145/78 H 138/80 Pulse Oximetry 98 98 97 [facility] Room Air Room Air Room Air 10/05/23 11:21 10/05/23 11:30 10/05/23 11:45 Temperature 95.9 F L 96.5 F L Pulse Rate 49 L 49 L 49 L Pulse Rate [Pulse Oximeter] Respiratory Rate 16 16 16 Blood Pressure 133/71 125/82 112/55 L Pulse Oximetry 97 95 98 [facility] Room Air Room Air Room Air 10/05/23 12:00 10/05/23 12:15 10/05/23 12:45 Temperature 97.3 F L Pulse Rate 48 L 49 L 49 L Pulse Rate [Pulse Oximeter] Respiratory Rate 16 16 16 Blood Pressure 143/69 H 141/66 H 130/65 Pulse Oximetry 97 98 97 Oxygen Delivery [facility] Room Air Room Air Room Air 10/05/23 13:15 10/05/23 14:00 10/05/23 15:00 Temperature 97.5 F L Pulse Rate 50 L 54 L Pulse Rate [Pulse Oximeter] Respiratory Rate 16 16 16 Blood Pressure 157/80 H 136/89 Pulse Oximetry 97 98 96 Oxygen Delivery [facility] Room Air Room Air Room Air 10/05/23 15:00 10/05/23 16:00 10/05/23 17:00 Temperature 97.4 F L 97.8 F Pulse Rate 55 L 56 L Pulse Rate [Pulse Oximeter] 55 L Respiratory Rate 16 18 Blood Pressure 142/77 H 147/72 H Pulse Oximetry 96 99 Oxygen Delivery [facility] Room Air Room Air Documenting provider has reviewed patient's vital signs: yes Assessment and Plan Assessment and plan (1) S/P total right hip arthroplasty: Problem comment: Dr. García, on October 05 2023. No complications Status: Acute (2) Acquired lymphedema of lower extremity: Problem comment: both legs since 2006 Status: Acute (3) LUCIANA (obstructive sleep apnea): Problem comment: Patient brought her home unit. Status: Acute (4) Atrial fibrillation: Problem comment: On sotalol and apixaban. Resume sotalol tonight and apixaban tomorrow Status: Acute Plan Patient will be monitored in the hospital for complications of surgery, management of chronic medical problems postoperatively and routine pain management and therapy. Anticipate discharge to home tomorrow with her . Total time spent today is 50 minutes, 30 minutes in coordination of care discussing with patient and ongoing evaluation and management of postoperative care
[2023-10-05] MEDS: SENNOSIDES 1 TAB TABLET 2 TAB PO (20:58)
[2023-10-05] MEDS: SOTALOL HCL 80 MG TABLET 40 MG PO (20:58)
[2023-10-05] MEDS: ATORVASTATIN CALCIUM 40 MG TABLET PO (20:59)
[2023-10-06] MEDS: CEFAZOLIN 2 GM in 0.9 % SODIUM CHLORIDE Mini-bag 100 ML IVPB (00:28)
[2023-10-06] MEDS: ACETAMINOPHEN 500 MG TABLET 1000 MG PO ×2 (00:29→06:41)
[2023-10-06 03:00] VITALS: BP 134/81; PULSE 78; RESP 16; TEMP 36.1; O2SAT 97
[2023-10-06 06:27] LABS: Basophils Percent Auto 0.1 % (0.0-3.0); Hematocrit 36.2 % (33.0-51.0); Hemoglobin* 11.8 gm/dL (12.0-16.0); Immature Granulocytes Pct Auto 0.3 %; Lymphocytes Percent Auto 6.4 % (20-44); Mean Corpuscular HGB Conc 33 gm/dL (32-36); Mean Corpuscular Hemoglobin 29 pg (26-34); Mean Corpuscular Volume 89 fL (80-100); Monocytes Percent Auto 7.5 % (0.0-11.0); Neutrophils Percent Auto 85.7 % (42.0-72.0); Platelet Count* 209 K/uL (140-440); Red Blood Count 4.05 m/uL (4.00-5.20); White Blood Count* 11.83 K/uL (4.50-11.00)
[2023-10-06 06:31] LABS: Slide Review Reflex No
[2023-10-06 06:42] LABS: Sodium* 136 mmol/L (135-149)
[2023-10-06 06:43] LABS: Potassium* 3.7 mmol/L (3.6-5.1)
[2023-10-06 06:45] LABS: Creatinine* 0.6 mg/dL (0.5-1.5); Est. Creatinine Clearance* 50.91; Estimated Glomerular Filt Rate 97 ml/min
[2023-10-06 06:46] LABS: Blood Urea Nitrogen* 14 mg/dL (7-30)
--- NOTE | 2023-10-06 06:59 | PC.NURSE ---
End of shift note [id number]: Pt alert & oriented x 4 and using call light appropriately. She has been continent of bladder and transfers/ambulates with SBA using FWW and gait belt. Pt wears home CPAP at [facility] d/t hx of LUCIANA. VSS and pt has been afebrile. Incision to R hip noted to be C/D/I. Pt reports pain to R hip/leg has been minimal 05/05 with scheduled Tylenol administered along with providing ice. IV to R hand patent and SL.?Pt has been denying pain when asked.
[2023-10-06 07:00] VITALS: BP 127/78; PULSE 78; PULSE 81; RESP 16; TEMP 36.7; O2SAT 96; O2SAT 97
[2023-10-06] MEDS: SENNOSIDES 1 TAB TABLET 2 TAB PO (08:01)
[2023-10-06] MEDS: SOTALOL HCL 80 MG TABLET 40 MG PO (08:07)
[2023-10-06] MEDS: MULTIVITAMIN/MINERALS 1 TABLET 1 TAB PO (08:09)
[2023-10-06] MEDS: APIXABAN 5 MG TABLET PO (08:25)
--- NOTE | 2023-10-06 08:30 | PM.ORPN ---
Subjective Subjective Time Seen by Provider: 08:30 Date Seen: 10/06/23 Principal diagnosis: Right hip replacement 10/05/2023 Interval history: Adelina is comfortable. She will discharge today with her . Ortho Exam Narrative Exam Narrative: Alert and oriented x3. Patient is in no acute distress. Converses without labored breathing. Hearing is grossly intact. Ambulates with a walker. Examination of the right hip shows the dressing is intact. Mild soft tissue edema. No erythema or warmth or sign of infection. Able to straight leg raise. CMS intact right lower extremity. Calves are soft and nontender. Const Vital Signs, click to edit/add: Vital Signs - 24 hr 10/05/23 10:39 10/05/23 10:40 10/05/23 10:45 Temperature 97.2 F L Pulse Rate 60 54 L 53 L Pulse Rate [Pulse Oximeter] Respiratory Rate 16 16 16 Blood Pressure 141/89 H 139/80 144/99 H Blood Pressure [Left Arm] Blood Pressure [Right Arm] Pulse Oximetry 97 97 99 Oxygen Delivery Method Room Air Room Air Room Air 10/05/23 10:50 10/05/23 10:55 10/05/23 11:00 Temperature 97.3 F L Pulse Rate 53 L 51 L 52 L Pulse Rate [Pulse Oximeter] Respiratory Rate 16 16 16 Blood Pressure 140/89 H 138/72 135/89 Blood Pressure [Left Arm] Blood Pressure [Right Arm] Pulse Oximetry 98 98 96 Oxygen Delivery Method Room Air Room Air Room Air 10/05/23 11:05 10/05/23 11:10 10/05/23 11:13 Temperature 97.6 F Pulse Rate 49 L 52 L 50 L Pulse Rate [Pulse Oximeter] Respiratory Rate 16 16 16 Blood Pressure 145/73 H 145/78 H 138/80 Blood Pressure [Left Arm] Blood Pressure [Right Arm] Pulse Oximetry 98 98 98 Oxygen Delivery Method Room Air Room Air Room Air 10/05/23 11:21 10/05/23 11:21 10/05/23 11:30 Temperature 95.9 F L Pulse Rate 49 L 49 L Pulse Rate [Pulse Oximeter] Respiratory Rate 16 16 16 Blood Pressure 133/71 125/82 Blood Pressure [Left Arm] Blood Pressure [Right Arm] Pulse Oximetry 97 97 95 Oxygen Delivery Method Room Air Room Air Room Air 10/05/23 11:45 10/05/23 12:00 10/05/23 12:15 Temperature 96.5 F L Pulse Rate 49 L 48 L 49 L Pulse Rate [Pulse Oximeter] Respiratory Rate 16 16 16 Blood Pressure 112/55 L 143/69 H 141/66 H Blood Pressure [Left Arm] Blood Pressure [Right Arm] Pulse Oximetry 98 97 98 Oxygen Delivery Method Room Air Room Air Room Air 10/05/23 12:45 10/05/23 13:15 10/05/23 14:00 Temperature 97.3 F L 97.5 F L Pulse Rate 49 L 50 L 54 L Pulse Rate [Pulse Oximeter] Respiratory Rate 16 16 16 Blood Pressure 130/65 157/80 H 136/89 Blood Pressure [Left Arm] Blood Pressure [Right Arm] Pulse Oximetry 97 97 98 Oxygen Delivery Method Room Air Room Air Room Air 10/05/23 15:00 10/05/23 15:00 10/05/23 16:00 Temperature 97.4 F L Pulse Rate 55 L Pulse Rate [Pulse Oximeter] 55 L Respiratory Rate 16 16 Blood Pressure 142/77 H Blood Pressure [Left Arm] Blood Pressure [Right Arm] Pulse Oximetry 96 96 Oxygen Delivery Method Room Air Room Air 10/05/23 17:00 10/05/23 19:37 10/05/23 23:00 Temperature 97.8 F 98.6 F Pulse Rate 56 L Pulse Rate [Pulse Oximeter] 70 70 Respiratory Rate 18 16 16 Blood Pressure 147/72 H Blood Pressure [Left Arm] Blood Pressure [Right Arm] Pulse Oximetry 99 98 Oxygen Delivery Method Room Air Room Air 10/05/23 23:00 10/05/23 23:00 10/06/23 03:00 Temperature 97.3 F L 97.0 F L Pulse Rate Pulse Rate [Pulse Oximeter] 69 78 Respiratory Rate 16 16 16 Blood Pressure Blood Pressure [Left Arm] 147/64 H Blood Pressure [Right Arm] 134/81 Pulse Oximetry 98 98 97 Oxygen Delivery Method Room Air Room Air Room Air Assessment and Plan Assessment and plan (1) S/P total right hip arthroplasty: Problem details: Dr. García, on October 05 2023. No complications Status: Acute Assessment and Plan: Plan for discharge is today, and when they meets discharge criteria. Adelina will continue with Melissa. Remove dressing 1 week. Observe wound and phone Orthopedics with any questions or concerns Use Ice on operative hip unrestricted. Return to clinic in 1 week with PA for a wound check Return to clinic in 6 weeks with surgeon Minimize narcotic use. Wean off and discontinue soon as possible. Activities as tolerated. No strenuous activity. Attend outpt PT
--- NOTE | 2023-10-06 12:39 | PC.NURSE ---
Pt signed off by therapy department. Up walking with SBA, walker and GB. Rating pain at a 2-3/10. Oxycodone given for pain. Discharge instructions went over with patient and spouse. All questions were answered and forms were signed. Escorted to front entrance via nursing staff and wheelchair.
== END 2023-10-06 10:57 | disposition home or self-care (01) ==
LOC: OR 06:11 → MEDSURG 06:13
PROVIDERS: PCP Family Medicine; Visit Provider Orthopaedic Surgery
PROC: (CPT 27130; principal; 2023-10-05 07:45)
DX: M16.11 Unilateral primary osteoarthritis, right hip (principal); G89.18 Other acute postprocedural pain; Z68.37 Body mass index [BMI] 37.0-37.9, adult; I25.10 Atherosclerotic heart disease of native coronary artery without angina pectoris; I48.91 Unspecified atrial fibrillation; G47.33 Obstructive sleep apnea (adult) (pediatric); I89.0 Lymphedema, not elsewhere classified
CPT/HCPCS: 27130; 01214; 36415; 64450; 73501; 76000; 76942; 82565; 84132; 84295; 84520; 85025; 86850; 86900; 86901; 97110; 97116; 97161; 97165; 97530; 97535; 99100; A9153; A9270; C1776; J0690; J1170; J1630; J2250; J2405; J2704; J2710; J3010; J3475; J3490; J7120

== ENCOUNTER 2023-12-20 16:15 | Outpatient (RCR) | payer MEDICARE, SELFPAY ==
--- NOTE | 2023-09-29 14:30 | PT.OPE ---
PT [facility] Outpatient Eval PT [facility] Outpatient Eval Start: 09/29/23 13:14 Freq: Status: Active Protocol: Document 09/29/23 13:21 THEO (Rec: 09/29/23 14:05 THEO [id number]) E-signed By Addison Quarles, PT, ATC Physical Therapy Outpatient Evaluation Insurance Information Recert Due Date 12/30/23 Insurance Name Medicare B Medical Diagnosis M16.11 Unilateral primary osteoarthritis, right hip Treating Diagnosis R hip pain and stiffness Referring MD García Subjective Subjective Long history of R hip pain and stiffness. Treated with multiple injections which had been effective up until the last one. Was hoping to have the hip procedure last year but delayed secondary cardiac concerns-encouraged to wait additional time since having R knee replacement within previous year. Scheduled for procedure in but postponed because of skin cancer treatment. Finally, she is scheduled for the R ERICA on 10/05/23. PMHX: L ERICA 2017 R TKA 2021 Pain Comments Average 08/03 High 02/02 Date of Surgery (If applicable) 10/05/23 Current Work Status Retired Preferred Name Adelina Assessment Assessment/Impression Adelina is a very pleasant 68 year old woman scheduled for her R ERICA procedure on 10/05/23 . Because of previous joint replacement procedures, she should do well with the recovery knowing what to expect. She has shown good attendance, effort and follow up with exercise during her prior sessions of PT so I expect this recovery to be similar. Her hip OA, compensated ADL's and pain support the need for the surgery. She struggles exiting a chair, stands with asymmetric weight distribution and walks using an antalgic gait pattern. Adelina was able to contract her quadriceps well along with good performance in all of the pre op ERICA ex.s today. Plan of Care Rehabilitation Potential Good Physical Therapy Goals Pre op: 1.Demonstrate understanding and correct performance with ERICA ex.s, walker usage and stair ascent/descent following first visit. Post op: goals to be established following surgery at time of first follow up visit to outpatient PT. Coordination/Communication With Referral Source Frequency/Duration 1x pre op 20-24 visits post op Patient Will Be Discharged From Therapy Independent w/HEP, Independently Progressing Evaluation Billing Untimed Code Treatment Minutes 30 PT Eval No Charge No Complexity Low Certification Information Initial Certification Date 09/29/23 Ending Certification Date 12/30/23 Provider Signature Required Yes Provider Signature Shows Agreement With POC & Medical Necessity Physician NPI Number Write NPI# Here Physician Comment/Change : Physician Signature & Date Requested Please Sign/Date Here
== END 2023-12-20 17:19 | disposition home or self-care (01) ==
PROVIDERS: PCP Family Medicine; Visit Provider Orthopaedic Surgery
DX: M16.11 Unilateral primary osteoarthritis, right hip (principal); Z96.641 Presence of right artificial hip joint; Z51.89 Encounter for other specified aftercare; M25.551 Pain in right hip; M25.651 Stiffness of right hip, not elsewhere classified; R60.9 Edema, unspecified; R26.9 Unspecified abnormalities of gait and mobility
CPT/HCPCS: 97110; 97116; 97140; 97161; 97164; 97166

== ENCOUNTER 2024-03-07 09:15 | Outpatient (RCR) | payer MEDICARE, SELFPAY ==
[2023-11-04 08:13] VITALS: BMI 35.1
[2023-11-04 17:03] VITALS: BMI 35.1
[2023-11-09 17:28] VITALS: BMI 35.1
[2023-11-11 12:13] VITALS: BMI 35.1
[2023-11-16 09:53] VITALS: BMI 35.1
[2023-11-18 15:01] VITALS: BMI 35.1
[2023-12-09 12:29] VITALS: BMI 35.1
[2023-12-21 17:18] VITALS: BMI 35.1
[2024-01-04 12:13] VITALS: BMI 35.1
[2024-02-01 12:55] VITALS: BMI 35.1
[2024-02-08 11:21] VITALS: BMI 35.1
[2024-03-07 10:19] VITALS: BMI 35.1
== END 2024-03-07 13:32 | disposition home or self-care (01) ==
PROVIDERS: PCP Family Medicine; Visit Provider Nurse Practitioner Adult Health
DX: I89.0 Lymphedema, not elsewhere classified (principal); Z51.89 Encounter for other specified aftercare
CPT/HCPCS: 97140; 97166

== ENCOUNTER 2024-05-09 06:58 | Day surgery (SDC) | payer MEDICARE, SELFPAY ==
[2024-05-09] VITALS (18 sets, daily range): BP systolic 107–145; BP diastolic 59–90; PULSE 49–67; RESP 14–18; TEMP 36.1–36.6; O2SAT 92–99; BMI 36.3
--- OUTSIDE RECORDS SUMMARY | 2024-05-09 07:03 | XMS_ITS | Clinical Summary ---
Author Organization [employer] [facility] Address [place], [place] [address] Care Team Providers Care Administration Specialist Name Role Phone Earnestine Chavarria MD Primary Care Provider Allergies Active Allergy Reactions Criticality Noted Date Comments Adhesive Hives 04/29/2015 Medications metoprolol tartrate (LOPRESSOR) 25 mg tabletIndications: Paroxysmal atrial fibrillation (HC) Take 1 Tablet (25 mg) by mouth each time if needed (as needed for atrial fibrillation). 30 Tablet 2 07/17/19 23 Active nitroglycerin (NITROSTAT) 0.4 mg sublingual tabletIndications: NSTEMI (non-ST elevated myocardial infarction) (HC),Arteriosclero tic heart disease (ASHD) PLACE 1 TABLET UNDER THE TONGUE EVERY 5 MINUTES NEEDED FOR CHEST PAIN FOR UP TO 3 DOSES. IF SYMPTOMS PERSIST 5 MINUTES AFTER 1ST DOSE, CALL 911. 25 Tablet 1 01/27/20 23 Active apixaban (Eliquis) 5 mg tabletIndications: Paroxysmal atrial fibrillation (HC) Take 1 Tablet (5 mg) by mouth two times daily. Pharmacist, please activate 30 day free trial card RX BIN [id number] GRP [id number] [id number] ID [id number] Tablet 11 06/01/19 24 Active CPAPIndications:Ob structive sleep apnea replacement CPAP machine for home use at pressure: 5-16 cmw , Heated humidifier x 1 q 5 yr, Humidifier chamber x 1 q 6 mo, nasal mask x1 q 3mos, with cushion x 2 q mo, standard tubing x 1 q 3 mo, Headgear x 1 q 6 mo, Filters: Disposable x 2 q mo non-disposable filters x1 q 6mo, Length of Need: 99 months, Frequency of use: Daily 1 Each 5 08/13/19 24 Active sotaloL (BETAPACE) 80 mg tabletIndications: Paroxysmal atrial fibrillation (HC) TAKE HALF TABLET BY MOUTH EVERY TWELVE HOURS 90 Tablet 2 12/03/19 24 Active atorvastatin (LIPITOR) 40 mg tabletIndications: NSTEMI (non-ST elevated myocardial infarction) (HC),Arteriosclero tic heart disease (ASHD),Hyperlipide arik, unspecified hyperlipidemia type Take 1 Tablet by mouth at bedtime. 90 Tablet 2 12/29/19 24 Active amoxicillin 500 mg capsuleIndications :History of total left hip replacement TAKE 4 CAPSULES BY MOUTH 30 minutes BEFORE DENTAL APPOINTMENT. 4 Capsule 3 04/12/20 24 Active cholecalciferol (VITAMIN D) 1,000 unit capsule Take 1 capsule by mouth once daily. 0 02/02/20 18 024 Discontinu ed(*Patien t states no longer taking) medication order cosmo Huitron, 0 09/14/19 20 025 Discontinu ed(*Med complete/R egimen complete/L evel of care change) amoxicillin (AMOXIL) 500 mg capsuleIndications :History of total left hip replacement TAKE 4 CAPSULES BY MOUTH 30 minutes BEFORE DENTAL APPOINTMENT. 4 Capsule 1 02/20/20 23 024 Discontinu ed(Reorder (E-cancel not sent)) apixaban (Eliquis) 5 mg tabletIndications: Paroxysmal atrial fibrillation (HC) Take 1 Tablet (5 mg) by mouth two times daily. 180 Tablet 3 05/06/19 24 025 Discontinu ed(Duplica te therapy (E-cancel not sent)) amoxicillin 500 mg capsuleIndications :History of total left hip replacement TAKE 4 CAPSULES BY MOUTH 30 minutes BEFORE DENTAL APPOINTMENT. 4 Capsule 04/12/20 24 024 Discontinu ed(Reorder (E-cancel not sent)) Active Problems Problem Noted Date Diagnosed Date Melanoma 03/26/2023 Overview (09/27/2023): Managed by Derm Leg swelling 02/15/2023 LUCIANA 05/02/2015 AHI-45 05/13/2015 Arteriosclerotic heart disease (ASHD) 04/30/2015 Overview (04/30/2015): - 04/29/15 NSTEMI, Cor angio with 99% mid Circ; s/p CHUCK x 1 NSTEMI, initial episode of care 04/30/2015 Persistent atrial fibrillation 04/30/2015 Varicose veins of both lower extremities with pa in 09/30/2011 Other and unspecified hyperlipidemia 10/25/2009 Resolved Problems Problem Noted Date Diagnosed Date Resolved Date Acute cystitis without hematuria 12/01/2019 12/01/2019 Glenohumeral arthritis, right 01/24/2018 01/20/2023 Hip arthritis 12/18/2016 01/20/2023 Impingement syndrome of right shoulder 12/18/2016 01/20/2023 Chronic pain of both knees 11/30/2016 0 01/20/2023 Primary osteoarthritis of ri ght knee (lateral compartment) 11/30/2016 01/20/2023 Anticoagulation monitoring, special range (2.0 - 2.5) 05/02/2015 01/21/2016 Atrial flutter 04/30/2015 01/26/2017 Right knee DJD 09/30/2011 01/20/2023 Unspecified vitamin D deficiency 03/08/2008 01/20/2023 Lymphedema 01/20/2023 Overview (03/08/2008): b/l lower ext Paroxysmal atrial fibrillation 01/26/2017 Encounters Date Type Department Care Team Description 05/03/2024 2:00 PM CELLARS SUPERVISOR Office Visit [facility] [address] [address] Earnestine Chavarria MD Preoperative Exam 05/03/2024 Travel 04/24/2024 10:30 AM CELLARS SUPERVISOR Office Visit [facility] [address] [address] Dean Bishop MD CV General Cardiology Est (F/U. Pt states no symptoms. ) 04/24/2024 Travel 04/20/2024 Travel 04/12/2024 Refill [facility] [address] [place] [address] Earnestine Chavarria MD Refill Request (amoxicillin (AMOXIL) 500 mg capsule) 04/11/2024 Refill [facility] [address] [address] Earnestine Chavarria MD Refill Request (Amoxicillin) 04/06/2024 9:30 AM CELLARS SUPERVISOR Office Visit [facility] [address] [facility] [address] [place] [address] Radha Mauro NP Edema 04/06/2024 Travel 04/01/2024 Travel 03/27/2024 9:20 AM CELLARS SUPERVISOR Ancillary Procedure [facility] [address] [place] [address] 03/27/2024 Travel 03/14/2024 7:30 AM CELLARS SUPERVISOR Ancillary Procedure [facility] [address] [facility] [address] [place] [address] 03/14/2024 Travel 03/09/2024 9:40 AM CELLARS SUPERVISOR Office Visit [facility] [address] [place] [address] Earnestine Chavarria MD Lump (3 lumps on right upper thigh x 3 month, some pain ); Immunization/Injecti on 03/09/2024 Travel 02/24/2024 Orders Only [facility] Scanner 1 scan: (1-Ord) [facility] [place], 02/24/2024 from Last 3 Months Immunizations Name Administration Dates Next Due COVID-19 vaccine ([employer] 30mcg/0.3mL) [place] 08/08/2020,07/18/2020 HepA-HepB (Twinrix) 07/17/2004,02/20/2004,2003 Influenza RIV4 (Age 18+ Year s) PRESERV FREE 02/14/2019 Influenza, IIV3 (Age >=3 years) 01/17/20 13,01/28/2012,01/29/2011,2009,01/18/2009,03/06/2008 Influenza, IIV4 02/01/2018, 6,01/03/2015,2013 Influenza, IIV4 (=>6mos) MDV 01/11/2017 Influenza, Inactivated AIIV4 (Age 65+ Years) Preserv Free 01/20/2023,01/12/2022,01/08/2021,2019 Influenza, Inactivated IIV3 (Age 65+ Years) Preserv Free 03/09/2024,02/14/2019 Pneumococcal Poly,23-Valent (Pneumovax) 01/09/2020 Pneumococcal conj 13-Valent (Prevnar 13) 08/30/2018 Td (Age >=7 Years) 12/25/1997 Tdap 07/30/2018,03/06/2008 Zoster (Shingrix-RZV, recombinant) 07/30/2018, Zoster (Zostavax-ZVL, live) 01/16/2013 Family History Medical History Relation Name Comments Lymphoma Brother 1 Juan Ramon Good Health Brother 2 Bill Heart attack Brother 3 Zaire of Heart a ttack Diabetes Brother 4 Enzo Heart attack Brother 4 Enzo Heart Disease Brother 5 René No Known Problems Daughter 1 Gi No Known Problems Daughter 2 Tseirng Arthritis Father Heart Disease Father Heart Disease Mother Heart failure Mother Congenital heart disease Sister 1 Amelia Heart failure Sister 1 Amelia Heart failure Sister 2 Pam Kidney disease Sister 2 Pam Good Health Sister 3 Chelsea Good Health Sister 4 Pat Good Health Sister 5 Marylin Good Health Sister 6 Lisa Good Health Sister 7 Deedee Arthritis Son Cyril Back Raynaud syndrome Son Cyril Anesthesia Problem No Family History Blood Disease No Family History Cancer-breast No Family History Clotting disorder No Family History Relation Name Status Comments Brother 1 Juan Ramon (Age 35) Brother 2 Bill Alive Brother 3 Zaire Brother 4 Enzo Brother 5 René Alive Daughter 1 Gi Alive Daughter 2 Tsering Alive Father (Age 78) Maternal Grandfather Maternal Grandmother Mother Paternal Grandfather Paternal Grandmother Sister 1 Amelia Sister 2 Pam Alive Sister 3 Chelsea Alive Sister 4 Natalia Alive Sister 5 Marylin Alive Sister 6 Lisa Alive Sister 7 Deedee Alive Son Cyril Alive Social History Tobacco Use Types Packs/Day Years Used Date Smoking Tobacco: Former Cigarettes 0.5 20 0 04/26/1981 - 04/26/2001 Smokeless Tobacco: Never Tobacco Cessation:Counseling Given: Yes Comments:off and on smoker for 20yrs. Alcohol Use Standard Drinks/Week Comments Yes 0 (1 standard drink = 0.6 oz pur e alcohol) A few times a year PHQ-2 Answer Date Recorded PHQ-2 TOTAL SCORE 0 01/24/2024 Social Connections Answer Date Recorded Frequency of Communication with Friends and Fami ly 0 01/19/2023 Financial Resource Strain Answer Date R ecorded Difficulty of Paying Living Expenses 3 01/19/2023 Difficulty of Paying Living Expenses Not on file 01/19/2023 Food Insecurity Answer Date Recorded Worried About Running Out of Food in the Last Ye ar 1 01/19/2023 Transportation Needs Answer Date Record ed Lack of Transportation (Medical) 1 01/19/2023 Housing Stability Answer Date Recorded Unable to Pay for Housing in the Last Year 1 01/19/2023 Comments No Sex and Gender Information Value Date Recorded Sex Assigned at Not on file Legal Sex Female 6:09 AM CELLARS SUPERVISOR Gender Identity Not on file Sexual Orientation Not on file Occupation Industry Job Start Date Job End Date Retired Not on file Not on file Not on file Obstetrics History Para Term AB IAB SAB Ectopic Multiple Livin g Live Births 3 3 3 0 0 0 0 0 0 0 0 Date Outcome GA Total Labor Labor/2nd/3rd Weight Sex Type Anes PTL Rosalva A1 A5 Name Clin 1972 Term M Vag Jamar 1974 Term F Vag Gi 1979 Term F Vag Tsering Last Filed Vital Signs Vital Sign Reading Time Taken Comments Blood Pressure 136/82 05/03/2024 2:25 PM CELLARS SUPERVISOR Pulse 66 05/03/2024 1:59 PM CELLARS SUPERVISOR Temperature 36.6 C (97.8 F) 12/30/2023 9:16 AM CDT Respiratory Rate 14 04/06/2024 9:13 AM CELLARS SUPERVISOR Oxygen Saturation 100% 05/03/2024 1:59 PM CELLARS SUPERVISOR Inhaled Oxygen Concentration - - Weight 105.3 kg (232 lb 1.6 oz) 05/03/2024 1:59 PM CELLARS SUPERVISOR Height 170.2 cm (5' 7) 05/03/2024 1:59 PM CELLARS SUPERVISOR Body Mass Index 36.35 05/03/2024 1:59 PM CELLARS SUPERVISOR Plan of Treatment Upcoming Encounters Date Type Department Care Team (Late st Contact Info) Description 06/14/2024 7:30 AM CELLARS SUPERVISOR Ancillary Procedure [facility] [address] [facility] [address] [place] [address] Health Maintenance Due Date Last Done Comments RSV vaccine for adults or (1 - Risk 60-74 years 1-dose series) 2013 COVID-19 vaccine series ( season) 2023 08/08/2020, 07/18/2020 Depression screening for age 12+ 01/23/2025 01/24/2024, 01/20/2023, 01/13/2022, Additional history exists Medicare Wellness for age 65+ 01/24/2025, 01/20/2023, 01/12/2022, Additional history exists Mammogram for age 45-75 03/27/2025 03/27/20 24, 03/22/2023, 02/23/2022, Additional history exists BMI (ht and wt on same day) for age 18+ 05/03/2025 05/03/2024, 04/24/2024, 01/24/2024, Additional history exists Tetanus booster 07/30/2028 07/30/2018, 02/24, 12/25/1997 Lipids for age 45-75 01/23/2029 01/24/2024, 01/20/2023, 01/12/2022, Additional history exists Colonoscopy through age 75 10/16/203210/16, 10/16/2022, 10/16/2022, Additional history exists Tdap Completed 07/30/2018, 03/06/2008 Zoster (shingles) series for age 50+ Completed 07/30/2018, 05/28/2018, 01/16/2013 Hepatitis C screening for ag e 18-79 Completed 10/04/2019, 10/04/2019 Pneumococcal series for age 50+ Completed , 08/30/2018 DEXA/DXA scan for age 65+ Completed 02/23/2022, 10/2018 Influenza for age 65+ Completed 03/09/2024 , 01/20/2023, 01/12/2022, Additional history exists Medical Devices Implanted Type Area Senior Cost Estimator Device Identifier Shelf Expiration Date Model / Serial / Lot Screw Hip 6.5x25mm Reflection Reconstrt - [id number] Implanted:Qty: 1 on 01/26/2017 by Shakeel Quick MD at [facility] Left: Hip [employer] 07/31/2026 [id number]# / / [id number] Liner Hip Id36 Od52mm 20deg R3xlpe - [id number] Implanted:Qty: 1 on 01/26/2017 by Shakeel Quick MD at [facility] Left: Hip [employer] 11/23/2026 [id number]# / / [id number] Shell Hip Od52mm 3 Hole R3 Pe - [id number] Implanted:Qty: 1 on 01/26/2017 by Shakeel Quick MD at [facility] Left: Hip [employer] 12/02/2026 [id number]# / / [id number] Screw Hip 6.5x25mm Reflection Reconstrt - [id number] Implanted:Qty: 1 on 01/26/2017 by Shakeel Quick MD at [facility] Left: Hip [employer] 07/31/2026 [id number]# / / [id number] Stem Hip Sz3 135deg Polarstem Std - [id number] Implanted:Qty: 1 on 01/26/2017 by Shakeel Quick MD at [facility] Left: Hip [employer] 07/21/2023 [id number] / / [id number] Head Hip Od36mm +0 04/08 [employer] - [id number] Implanted:Qty: 1 on 01/26/2017 by Shakeel Quick MD at [facility] Left: Hip [employer] 09/08/2026 [id number]# / / [id number] Procedures Procedure Name Priority Date/Time Associated Diagnosis Comments HEMOGLOBIN Routine 05/03/2024 2:29 PM CELLARS SUPERVISOR Pre-op examination EKG 12 LEAD Routine 04/24/2024 10:30 AM CELLARS SUPERVISOR Paroxysmal atrial fibrillation (HC) XR MAMMO TREVER BILAT SCREEN Routine 03/27/2024 9:33 AM CELLARS SUPERVISOR Visit for screening mammogram US LOWER EXTREMITY SOFT TISSUE RIGHT Routine 03/14/2024 7:54 AM CELLARS SUPERVISOR Lump of skin of lower extremity, right SCAN-OPERATIVE/PROC EDURE REPORT 02/24/2024 12:00 AM CDT LIPID PANEL W REFLEX MEASURED LDL Routine 01/24/2024 9:43 AM CDT Persistent atrial fibrillation (HC) NSTEMI, initial episode of care (HC) Arteriosclerotic heart disease (ASHD) Hyperlipidemia, unspecified hyperlipidemia type COLONOSCOPY SCREENING Routine 10/16/2022 8:48 AM CDT Screen for colon cancer XR DXA BONE DENSITY 2 SITES AXIAL Routine 02/23/2022 9:43 AM CDT Asymptomatic postmenopausal state ANTI HCV Routine 10/04/2019 11:05 AM CDT Need for hepatitis C screening test from Last 3 Months or Most Recently Relevant to Health Maintenance Results * HEMOGLOBIN (05/03/2024 2:29 PM CELLARS SUPERVISOR) HEMOGLOBIN 12.2 11.7 - 15.5 g/dL [facility] Blood BLOOD SPECIMEN / Unknown 05/03/2024 2:29 PM CELLARS SUPERVISOR 05/03/2024 2:29 PM CELLARS SUPERVISOR Earnestine Chavarria MD HEMATOLOGY Final R esult [facility] [address] [place] [address], [facility] [address] [place] [address] * EKG 12 LEAD (04/24/2024 10:30 AM CELLARS SUPERVISOR) Interpretation Normal sinus rhythm Normal ECG When compared with ECG of 16-Jul-2022 09:26, MANUAL COMPARISON REQUIRED DATA IS UNCONFIRMED Ventricular Rate 70 BPM Atrial Rate 70 BPM P-R Interval 154 ms QRS Duration 76 ms QT 386 ms QTc 416 ms P [place] 32 degrees R [place] 61 degrees T [place] 58 degrees 04/24/2024 10:3 0 AM CELLARS SUPERVISOR 04/24/2024 5:27 PM CELLARS SUPERVISOR Dean Bishop MD EKG ORD Final Resul t * XR MAMMO TREVER BILAT SCREEN (03/27/2024 9:33 AM CELLARS SUPERVISOR) Anatomical Region Laterality Modality BREASTS, Breast Left, Breast Right Bilateral Mammography Impressions 03/29/2024 2:22 PM CELLARS SUPERVISOR There is no radiographic evidence for malignancy. Recommend annual mammograms. MAMMOGRAM ASSESSMENT: ACR 1 Negative PATIENTS: You will also receive a letter with your examination results in an easy to read format. If you have questions about your results, please contact your referring provider. Narrative 03/29/2024 2:22 PM CELLARS SUPERVISOR For Patients: As a result of the Cures Act, medical imaging exams and procedure reports are released immediately into your electronic medical record. You may view this report before your referring provider. If you have questions, please contact your health care provider. XR MAMMO TREVER BILAT SCREEN [[id number]] CLINICAL HISTORY: This is an asymptomatic 68 y.o. patient. INDICATION FOR EXAM: Mammogram Screening. TECHNIQUE: CC & MLO views were obtained. This study was evaluated with the assistance of Computer-Aided Detection. Breast Tomosynthesis was used in interpretation. COMPARISON FILM: Yes 03/22/23 [employer] 02/23/22 [employer] FINDINGS: There are scattered areas of fibroglandular density. There are no dominant masses, suspicious micro calcifications or areas of architectural distortion. Earnestine Chavarria MD MAMMO Final R esult * US LOWER EXTREMITY SOFT TISSUE RIGHT (03/14/2024 7:54 AM CELLARS SUPERVISOR) Anatomical Region Laterality Modality LEG R Ultrasound 03/14/2024 1:31 PM CELLARS SUPERVISOR Narrative 03/14/2024 1:31 PM CELLARS SUPERVISOR For Patients: As a result of the Cures Act, medical imaging exams and procedure reports are released immediately into your electronic medical record. You may view this report before your referring provider. If you have questions, please contact your health care provider. CLINICAL HISTORY: Lump Of skin. Palpable lumps over scar from recent hip surgery. FINDINGS: Multiple superficial heterogeneous mixed echotexture areas imaged corresponding to palpable lumps along the right hip. Areas measure 1.7 x 1.2 x 1.7 centimeters, 1.4 x 1.4 x 1.8 centimeters 2.3 x 1.2 x 1.9 centimeters 1 x 0.5 x 1.1 centimeters. Impression : Multiple similar mixed echotexture superficial areas as described above with history of recent hip surgery underlying areas of scarring. These probably represent areas of fat necrosis. Recommend clinical and imaging follow-up with repeat imaging in 3 months. Dictated by Elsa Claros MD @ 03/14/2024 1:31:03 PM (Electronically Signed) Procedure Note Elsa Claros MD - 03/14/2024 For Patients: As a result of the Cures Act, medical imagingexams and procedure reports are released immediately into your electronicmedical record. You may view this report before your referring provider.If you have questions, please contact your health care provider. CLINICAL HISTORY: Lump Of skin. Palpable lumps over scar from recent hip surgery. FINDINGS: Multiple superficial heterogeneous mixed echotexture areas imagedcorresponding to palpable lumps along the right hip. Areas measure 1.7 x 1.2 x 1.7 centimeters, 1.4 x 1.4 x 1.8 centimeters 2.3 x 1.2 x 1.9 centimeters 1 x 0.5 x 1.1 centimeters. Impression : Multiple similar mixed echotexture superficial areas as described abovewith history of recent hip surgery underlying areas of scarring. Theseprobably represent areas of fat necrosis. Recommend clinical and imagingfollow-up with repeat imaging in 3 months. Dictated by Elsa Claros MD @ 03/14/2024 1:31:03 PM (Electronically Signed) us Earnestine Chavarria MD US Final R esult * SCAN-OPERATIVE/PROCEDURE REPORT (02/24/2024 12:00 AM CDT) us Scanner OTHER Final Result * (ABNORMAL) LIPID PANEL W REFLEX MEASURED LDL (01/24/2024 9:43 AM CDT) CHOLESTEROL, TOTAL 123 <200 mg/dL [facility] HDL CHOLESTEROL 49(L) > OR = 50 mg/dL [facility] TRIGLYCERIDES 69 <150 mg/dL [facility] LDL-CHOLESTEROL 59 mg/dL (calc) [facility] Comment: Reference range: <100 Desirable range <100 mg/dL for primary prevention; <70 mg/dL for patients with CHD or diabetic patients with > or = 2 CHD risk factors. LDL-C is now calculated using the Ferny-William calculation, which is a validated novel method providing better accuracy than the Friedewald equation in the estimation of LDL-C. Ferny SS et al. JOSE MIGUEL. 2013;310(19): 3841-5472 (http://education.TriggerMail.LawPal/faq/WGL349) CHOL/HDLC RATIO 2.5 <5.0 (calc) [facility] NON HDL CHOLESTEROL 74 <130 mg/dL (calc) [facility] Comment: For patients with diabetes plus 1 major ASCVD risk factor, treating to a non-HDL-C goal of <100 mg/dL (LDL-C of <70 mg/dL) is considered a therapeutic option. Blood BLOOD SPECIMEN / Unknown 01/24/2024 9:43 AM CDT 01/24/2024 9:43 AM CDT Earnsetine Chavarria MD CHEMISTRY Final R esult [facility] [address] [place] [address], [facility] [address] [place] [address] * COLONOSCOPY (10/16/2022 8:42 AM CDT) 10/16/2022 8:42 AM CDT Narrative Transcriptions Ferny Landaverde MD - 10/16/2022 9:41 AM CDT Patient Name: Adelina Parisi Procedure Date: 10/16/2022 Gender: Female Date of : 1955 Admit Type: Outpatient Procedure: Colonoscopy Proceduralist: Ferny Landaverde MD , Terese Rivero RN (Nurse), Allie Molina (Nurse) Referring MD: Earnestine Chavarria Indications/Pre-Op Diagnosis: Screening for colorectal malignant neoplasm, Last colonoscopy: February 2012 Medications: Fentanyl 100 micrograms IV, Midazolam 2 mgIV, The level of sedation administered wasmoderate Procedure Description: The patient had risks, benefits and alternatives explained to andgave informed consent. The patient had a stable cardiopulmonary status and judged an adequate candidate for conscious sedation. The endoscope [id number] was passed through the anus andadvanced to the cecum, identified by appendiceal orifice and ileocecal valve.The colonoscopy was performed without difficulty. The patient toleratedthe procedure well. The quality of the bowel preparation was good. The ileocecal valve, appendiceal orifice, and rectum were photographed. Complications: No immediate complications. Estimated Blood Loss & Specimen: Estimated blood loss: none. Specimen collected - None Findings: The perianal and digital rectal examinations were normal. The entire examined colon appeared normal. Impressions/Post-Op Diagnosis: - The entire examined colon is normal. - No specimens collected. Recommendation: - Patient has a contact number available for emergencies. The signsand symptoms of potential delayed complications were discussed with the patient. Return to normal activities tomorrow. Written discharge instructions were provided to the patient. - Resume previous diet. - Continue present medications. - Repeat colonoscopy in 10 years for screening purposes. - Resume Xarelto (rivaroxaban) at prior dose today. Moderate Sedation: A time out was performed before the procedure. Moderate (conscious) sedation was administered by the endoscopy nurse and supervised bythe endoscopist. The following parameters were monitored: oxygensaturation, heart rate, blood pressure, EKG, CO2, respiratory rate, adequacy of pulmonary ventilation and reponse to care. Please refer to the patient's medical record flowsheets and nursing notes for moderate sedation details. Total physician intraservice time was 16 minutes. Ferny Landaverde MD 10/16/2022 9:41:02 AM This report has been signed electronically. Note Initiated On: 10/16/2022 8:42 AM Procedure Code(s): --- Professional --- 28670, Colonoscopy, flexible; diagnostic, including collection of specimen(s) bybrushing or washing, when performed (separateprocedure) Diagnosis Code(s): --- Professional --- Z12.11, Encounter for screening formalignant neoplasm of colon CPT copyright 2021 [employer]. All rights reserved. The codes documented in this report are preliminary and upon therapy site coordinator reviewmay be revised to meet current compliance requirements. Scope In: 9:21:54 AM Scope Withdrawal Time 0 hours 6 minutes 48 seconds Scope Out: 9:34:04 AM us Ferny Landaverde MD PROCEDURE ORD Final Res ult * (ABNORMAL) XR DXA BONE DENSITY 2 SITES AXIAL (02/23/2022 9:43 AM CDT) Anatomical Region Laterality Modality Spine, HIPS, HIPL, HIPR Other Impressions 02/25/2022 12:52 PM CDT Osteopenia. RECOMMENDATIONS: The National Osteoporosis Foundation recommends pharmacologic treatment for patients with T-scores of -2.5 or less, patients with prior history of fragility fractures, or patients with 10-year probability of greater than 3% at hips or greater than 20% of suffering major osteoporotic fractures. Recommend continued optimization of calcium and vitamin D intake through dietary means and/or supplementation and regular exercise. Repeat scan recommended in 3-5 years. Coni Taveras PA-C [facility] 02/25/2022 Narrative 02/25/2022 12:52 PM CDT For Patients: Results are automatically released to your [facility] ([employer]) account once available, in compliance with federal regulations. This means that you may see your results before your provider has had a chance to review them. Please allow 2-3 business days for your provider to comment on the results. XR DXA Bone Mineral Density (BMD) EXAM LOCATION: [facility] [address] [facility] [address] PATIENT NAME: Adelina Parisi DATE OF : 1955 EXAM DATE: 02/23/2022 REQUESTING PROVIDER: Earnestine Chavarria MD GENDER AT : female HEIGHT: 5' 7.52 (01/13/2022) WEIGHT: 237 lb 14.4 oz (01/13/2022) MENOPAUSAL STATUS: Postmenopausal RACE/ETHNICITY: White RISK FACTORS: Smoking (prior) and White Race CURRENT MEDICATION FOR BONE LOSS: NONE INDICATION: Post-Menopause COMPARISON DATE(S): 2018 DXA scans are compared to prior studies for a patient only when the two (or more) studies were performed on the same scanner. It is not possible to compare data generated on one scanner to data from another because there are not standards in DXA equipment. This applies even if the two scanners are made by the same back hand. PROCEDURE: Dual-energy x-ray absorptiometry performed with routine technique. Reporting is completed in the form of a T-score. The T-score represents the standard deviation from peak bone mass based on young healthy adult. A Z-score is used for diagnosis in premenopausal women, and for men under the age of 50. FINDINGS: RESULT LUMBAR SPINE L1-L4 (L3) BMD: 1.479 g/cm2 T-Score: + 2.4 Z-Score: + 2.9 Change from prior in 2019: Increase 0.4%. RESULTS FEMUR Left femoral neck BMD: T-Score: Z-Score: Change from prior Right femoral neck BMD: 0.872 g/cm2 T-Score: - 1.2 Z-Score: - 0.3 Change from prior in 2019: Decrease 10.9%. Right hip BMD: 0.899 g/cm2 T-Score: - 0.9 Z-Score: - 0.3 Change from prior in 2019: Decrease 10.1%. WHO criteria: Normal: T-score at or above -1 SD Osteopenia: T-score between -1.1 and -2.4 SD Osteoporosis: T-score at or below -2.5 SD FRAX RISK CALCULATION (USED FOR OSTEOPENIA ONLY): 10-year probability of major osteoporotic fracture: 8.3%. 10-year probability of hip fracture: 0.8%. Earnestine Chavarria MD DEXA Final R esult * (ABNORMAL) ANTI HCV (10/04/2019 11:05 AM CDT) HEPATITIS C ANTIBODY Reactive, Preliminary Positive(A) Non-React iliana 10/05/2019 7:57 AM CDT [facility] Comment:Presumptive evidence of antibodies to HCV. Reflexed to HCV RNA Quant (See separate report). Blood BLOOD SPECIMEN / Unknown Venipuncture / Unknown 10/04/2019 11:05 AM CDT 10/04/2019 11:09 AM CDT Earnestine Chavarria MD SEND OUTS Final R esult [facility] [employer] [facility] [address] [place] [address], [place] from Last 3 Months or Most Recently Relevant to Health Maintenance Insurance [facility] MEDICARE ADVANTAGE MR Advance Directives * Full Code (Latest Code Status on File) Date Activated Date Inactivated Comments 03/16/2017 10:28 AM 03/16/2017 2:54 PM * Full Code Date Activated Date Inactivated Comments 01/26/2017 4:30 PM 01/28/2017 3:33 PM Question Answer Comments Code Status Discussion: Per Existing Order * Full Code Date Activated Date Inactivated Comments 01/26/2017 8:46 AM 01/26/2017 4:28 PM * Full Code Date Activated Date Inactivated Comments 08/19/2016 10:00 AM 08/20/2016 1:33 PM * Full Code Date Activated Date Inactivated Comments 04/29/2015 3:33 PM 05/01/2015 1:53 PM Care Teams Administration Specialist Relationship Specialty Start [place] [address] [facility] [place] [address] PCP - General Family Practice 08/24/17
[2024-05-09] MEDS: LACTATED RINGERS 1000 ML 1,000 ML 100 ML IV (07:25)
[2024-05-09] MEDS: ACETAMINOPHEN 500 MG TABLET 1000 MG PO ×2 (07:26→14:23)
[2024-05-09] MEDS: CELECOXIB 200 MG CAPSULE PO (07:26)
[2024-05-09] MEDS: SODIUM CHLORIDE 0.9 % (FLUSH) 10 ML SYRINGE IVF (07:26)
[2024-05-09] MEDS: OXYCODONE (CR) 10 MG TAB.ER.12H PO (07:26)
[2024-05-09] MEDS: MIDAZOLAM HCL 1 MG/ML inj IVP (08:42)
[2024-05-09] MEDS: fentaNYL 100 MCG/2 ML inj IVP (08:42)
--- NOTE | 2024-05-09 08:57 | SUR.PREOP ---
TIME?OUT:? 0842 PT/RN/MDA?VERIFICATION?OF?SURGICAL?SITE,?PROCEDURE,?AND?CONSENT OBTAINED?PRIOR?TO?INVASIVE?PROCEDURE.
[2024-05-09] MEDS: TRANEXAMIC ACID 100 MG/ML INJ 1000 MG IV (09:32)
[2024-05-09] MEDS: CEFAZOLIN 2 GM INJ IVP (09:32)
--- NOTE | 2024-05-09 11:06 | P.ORPRC_ITS ---
Procedure Note Date of procedure: 05/09/24 Procedure: PREOPERATIVE DIAGNOSIS: Right shoulder glenohumeral joint osteoarthritis POSTOPERATIVE DIAGNOSIS: Right shoulder glenohumeral joint osteoarthritis NAME OF OPERATION: Right upper extremity reverse shoulder arthroplasty, biceps tenodesis SURGEON: Cristhian García MD CROWN ASSEMBLY MACHINE OPERATOR: HERMILO Aldana ANESTHESIA: General endotracheal ESTIMATED BLOOD LOSS: 100 mL COMPLICATIONS: None SPECIMENS: None DRAINS: None PREOPERATIVE ANTIBIOTICS: Ancef 2 grams IMPLANTS: 1. Tornier 25mm x 35mm baseplate 2. 36mm standard glenosphere 3. 6B humeral stem 4. High eccentric +0 humeral tray 5. 36mm +6 polyethylene INDICATIONS: The patient is a 68-year-old with a longstanding history of severe, unrelenting right shoulder pain secondary to end-stage glenohumeral joint osteoarthritis. Despite appropriate nonoperative management, including activity modification, anti-inflammatories, [id number] pain medication, physical therapy, and injections they continue to have pain and disability. Operative intervention was offered. The risks, benefits and expected outcomes were discussed in detail. These included but were not limited to: Infection, bleeding, injury to blood vessel or nerve, venous thromboembolism. All questions were answered to their satisfaction. Use of an trust administrative assistant was necessary throughout the case for patient positioning and safety, soft tissue retraction, and closure. PROCEDURE: General anesthesia was administered. The patient was placed in the lazy beach chair position on the operating room table. The right upper extremity was prepped and draped in the usual sterile fashion. A standard deltopectoral incision was made. Subcutaneous dissection was taken with electrocautery to the deltopectoral interval. The cephalic vein was mobilized, lateral branches were cauterized. The vein was taken medially with the pectoralis. We bluntly entered the deltopectoral interval. We freed up the deltoid. The upper 1/3 of the insertion of the pectoralis was divided with cautery. The static retractor was placed. The clavipectoral fascia and CA ligament were divided. The circumflex vessels were controlled with electrocautery. The biceps was dissected out of the bicipital groove, was tagged with a #2 FiberWire suture and divided proximally. Two fiberWire sutures were placed in the subscapularis. The subscap was subperiosteally elevated off of the lesser tuberosity. The humeral head was delivered into the wound. The intramedullary humeral cutting guide was placed. We made the cut at the anatomic neck, in 20? of retroversion. Humeral sounds were used to assess the diameter of the canal. The broach was placed and had good rotational stability. The calcar reamer was used and the protective base plate cover was placed. Attention was then turned to the glenoid. Hohmann retractors were placed posteriorly. The labrum and biceps stump were sharply debrided. The origin of the inferior glenohumeral ligaments were subperiosteally released off of the glenoid. The drill guide was placed. The guide pin was placed in 0? of cephalic tilt. The reamer was used to bleeding bone. The central drill was used x2. The tap was used. The standard base plate was placed. This had excellent purchase. Locking screws x 2 were placed. The glenosphere was placed, the set screw was tightened. Attention then returned to the humerus. We placed a high eccentric standard base plate and standard poly. We reduced the shoulder and took it through a range of motion. It was found to be stable with appropriate soft tissue tension. Trial humeral components were removed. The biceps was tenodesed in the bicipital groove with drill holes and our previously placed FiberWire suture. We placed #2 FiberWire sutures in the lesser tuberosity for subsequent subscap repair. We assembled the humeral component on the back table. We placed it in the center of our subscapularis repair sutures and tapped it down to our humeral cut. This had excellent purchase. The shoulder was reduced and again was found to be stable with appropriate soft tissue tension. We did a 3 min dilute Betadine solution soak. We irrigated the wound with 3 L of normal saline via pulse lavage. We repaired the subscapularis to the lesser tuberosity with our previously placed FiberWire sutures. The deltopectoral interval was loosely reapproximated with an 0 Vicryl in an interrupted [id number] fashion. Subcutaneous tissues were closed with the 2-0 Vicryl and a running 3-0 Monocryl suture. The skin was sealed with glue. A dry dressing and sling were applied. Sponge and needle counts were correct x2. The patient tolerated the procedure well, there were no apparent complications. They were awakened and extubated in the operating room, taken to the postanesthesia care unit in satisfactory condi tion. PLAN: The patient will be mobilized with physical therapy. The sling will be used for 6 weeks postoperatively. Active range of motion in forward flexion and abduction as tolerates. No external rotation greater than 0? for 6 weeks postoperatively. They will be discharged to home once medically appropriate.
--- NOTE | 2024-05-09 11:36 | P.ANES_ITS ---
Anesthesia Charges Start Date/Time Anesthesia Start Date: 05/09/24 Anesthesia Start Time: 09:10 Stop Date/Time Anesthesia Stop Date: 05/09/24 Anesthesia Stop Time: 11:37 Coding CPT Codes CPT Codes: ANESTH SHOULDER REPLACEMENT - 40160 ([id number]) P3 - PATIENT W/SEVERE SYS DISEASE, QK - SOCIETY EDITOR 2-4 CNCRNT ANES PROC, QX - DIRECT SERVICE PROVIDER SVC W/ MD MED DIRECTION
--- NOTE | 2024-05-09 11:36 | W.ANESCHARGE ---
Anesthesia Charges Start Date/Time Anesthesia Start Date: 05/09/24 Anesthesia Start Time: 09:10 Stop Date/Time Anesthesia Stop Date: 05/09/24 Anesthesia Stop Time: 11:37 Coding CPT Codes CPT Codes: ANESTH SHOULDER REPLACEMENT - 13497 ([id number]) P3 - PATIENT W/SEVERE SYS DISEASE, QK - TELECOMMUNICATIONS ENGINEER 2-4 CNCRNT ANES PROC, QX - ELECTRICAL DESIGNER DRAFTER SVC W/ MD MED DIRECTION
--- NOTE | 2024-05-09 11:51 | CRLHL7_ITS ---
For Patients: As a result of the Cures Act, medical imaging exams and procedure reports are released immediately into your electronic medical record. You may view this report before your referring provider. If you have questions, please contact your health care provider. Indication: Postop Technique: Two views right shoulder Findings/Impression: Hardware from a right shoulder arthroplasty is in satisfactory position. Bone alignment is normal. No sign of acute fracture. Postop changes are within normal limits. Dictated by Zaire Collazo MD @ 05/09/2024 12:34:15 PM (Electronically Signed)
--- NOTE | 2024-05-09 12:00 | SUR.PHASEI ---
Patient arrived to PACU awake, not needing oxygen, right fingers are tingling and she is able to move them.
--- NOTE | 2024-05-09 12:01 | SUR.PHASEI ---
Patient taking ice chips, full body warmer is on high, she likes this and doesn't want it turned down.
--- NOTE | 2024-05-09 12:06 | SUR.PHASEI ---
Patient meets discharge criteria from PACU
[2024-05-09] MEDS: 0.9 % SODIUM CHLORIDE 500 ML 500 ML 100 ML IV (12:30)
--- NOTE | 2024-05-09 12:39 | W.ANESCHARGE ---
Anesthesia Charges Start Date/Time Anesthesia Start Date: 05/09/24 Anesthesia Start Time: 09:10 Stop Date/Time Anesthesia Stop Date: 05/09/24 Anesthesia Stop Time: 11:37 Summary Extremes of Age - Over 70 or under 1: MDA Coding CPT Codes CPT Codes: ANESTH SHOULDER REPLACEMENT - 19841 ([id number]) QK - MARKING DEVICES ASSEMBLER 2-4 CNCRNT ANES PROC, QX - AUDIO VISUAL DIRECTOR SVC W/ MD MED DIRECTION, P3 - PATIENT W/SEVERE SYS DISEASE Additional Codes: Summary - Extremes of Age - Over 70 or under 1: MDA ([id number])
--- NOTE | 2024-05-09 12:39 | W.PM.NB ---
Nerve Block Nerve Block Time Seen by Provider: 08:45 Date Seen: 05/09/24 Type of block requested by surgeon for post-operative analgesia: supraclavicular Side: right Time out performed: Yes Verification of patient name: Yes Verification of date of : Yes Site marking: site marked Name of person performing procedure: Isac Continuous monitoring Was continuous monitoring of O2 sat, B/P, long filler cigar roller machine, recorded every 15 minutes?: Yes Procedure Checklist: sterile prep, needles and gloves Ultrasound guided. Images saved: Yes Medications given in 5ml increments after negative aspiration: Ropivicaine %: 0.5 mL: 20 Needle gauge: 22 Precedex (mcg): 25 Patient tolerated procedure well: Yes Block Charges Block Charge (with Pro Fee): Brachial Plexus Use of Ultrasound Machine for Block: Yes- US Guidance/pain block
== END 2024-05-09 15:50 | disposition home or self-care (01) ==
PROVIDERS: PCP Family Medicine; Visit Provider Orthopaedic Surgery
PROC: 0RRJ0JZ Replacement of Right Shoulder Joint with Synthetic Substitute, Open Approach (ICD-10-PCS; CPT 23472; principal; 2024-05-09 09:15)
DX: M19.011 Primary osteoarthritis, right shoulder (principal); G89.18 Other acute postprocedural pain
CPT/HCPCS: 23472; 23430; 01638; 64415; 73030; 76942; 97110; 97165; 97535; 99100; A9270; C1713; C1776; J0690; J1100; J2250; J2405; J2704; J2795; J3010; J7030; J7120

== ENCOUNTER 2024-08-16 13:30 | Outpatient (RCR) | payer MEDICARE, SELFPAY ==
--- NOTE | 2024-04-17 14:07 | OT.OPOE ---
OT Outpatient Ortho Eval OT Outpatient Ortho Eval* Start: 04/17/24 08:53 Freq: Status: Active Protocol: Document 04/17/24 11:16 YAMILEX (Rec: 04/17/24 12:01 [email or web address] [id number]) E-signed By Idalmis Benedict, OTR/L, CLT OT OP Ortho Eval Details Complexity Complexity Low Insurance Information Insurance Information Medicare B Other Insurance [employer] Outpatient History/Precautions Current Condition/Medical Diagnosis Referring Provider Dr. Cristhian García Medical Diagnoses M19.011 Primary Osteoarthritis of the R shoulder Treatment Diagnosis Pain in R shoulder, M25. 511 R shoulder stiffness, M25.611 Date of Onset Chronic Other Precautions None Other Conditions History of common carotid artery stent placement Z98.890 - Other specified postprocedural states (ICD-10) Z95.828 - Presence of other vascular implants and grafts ( ICD-10) Vertigo R42 - Dizziness and giddiness (ICD-10) LUCIANA (obstructive sleep apnea) G47.33 - Obstructive sleep apnea (adult) (pediatric) (ICD -10) CAD (coronary artery disease) I25.10 - Atherosclerotic heart disease of [place] coronary artery without angina pectoris (ICD-10) Acquired lymphedema of lower extremity I89.0 - Lymphedema, not elsewhere classified (ICD-10) High cholesterol E78.00 - Pure hypercholesterolemia, unspecified (ICD-10) Non-ST elevation (NSTEMI) myocardial infarction I21.4 - Non-ST elevation ( NSTEMI) myocardial infarction (ICD-10) Surgical History (Reviewed @ 14:17 by Kimberly Rowell) S/P total right hip arthroplasty (10/05/23) Z96.641 - Presence of right artificial hip joint (ICD-10) S/P ablation of atrial fibrillation Z98.890 - Other specified postprocedural states (ICD-10) Z86.79 - Personal history of other diseases of the circulatory system (ICD-10) History of ankle surgery () Z98.890 - Other specified postprocedural states (ICD-10) Status post total knee replacement, right (01/20/22) Z96.651 - Presence of right artificial knee joint (ICD-10) H/O cardiac radiofrequency ablation Z98.890 - Other specified postprocedural states (ICD-10) History of coronary artery stent placement Z95.5 - Presence of coronary angioplasty implant and graft (ICD-10) Hx of lumbar discectomy Z98.890 - Other specified postprocedural states (ICD-10) Hx of hysterectomy Z90.710 - Acquired absence of both cervix and uterus (ICD-10 ) Hx of colonoscopy Z98.890 - Other specified postprocedural states (ICD-10) S/P total left hip arthroplasty (~01/2017) Z96.642 - Presence of left artificial hip joint (ICD-10) Medical/Functional History Medical History Reviewed Yes Prior Level of Function/Mobility Fully Indep with self cares/ IADLs and Driving Lives with Spouse Bebeto *he is helpful and supportive Social History Employment Status Retired Other Critical Job [employer] Spending time with friends/ family and volunteering Ortho Subjective Subjective Subjective Patient is a pleasant 68 year old female who will be undergoing a R RSA on 05/09/[address] Cristhian García, of note patient is 6 months post op - ERICA (10/05/2023). Patient had a cortisone injection to this R shoulder on 02/02/2024 and reported very little relief in her symptoms/pain. Patient ambulates without a device, lives with her spouse Bebeto in [place]. They live in a house where she can live on 1 level. , Bebeto, is healthcare power of [place] attorney. Patient still drives and currently is Indep with all self cares and IADLs. Spouse is very supportive and will do all IADLs, provide patient with transportation and assist with all ADLs that patient needs help with. Patient wears bilaeral LE Lymphedema stockings that spouse will need to clay/doff for patient while she is in a sling. Pain Assessment Pain Pain Yes Pain Comments R shoulder: 7-12/03 Pain in sharp *Patient has an ice machine from a previous hip surgery that she plans on using for this R shoulder recovery Range of Motion and Strength Shoulder Range of Motion and Strength Shoulder Range of Motion and Strength R UE Flexion: 85 degrees with heavy compensation and poor gliding of her scapula ( painful) R UE Extension: 48 degrees R UE Abduction: 90 degrees with heavy compensation and poor gliding of her scapula ( painful) R UE External Rotation: 18 degrees very painful R UE Internal Rotation: 62 degrees OT Problems Problems Problems Decreased Strength,Decreased Range of Motion,Pain Other Problems Writing,Opening Containers, Dressing,Fasteners,Sleeping Patient Potential Excellent Assessment Assessment Assessment Patient is a pleasant 68 year old female who will be undergoing a R RSA on 05/09/[address] Cristhian García, of note patient is 6 months post op - ERICA (10/05/2023). Patient had a cortisone injection to this R shoulder on 02/02/2024 and reported very little relief in her symptoms/pain. Patient ambulates without a device, lives with her spouse Bebeto in [place]. They live in a house where she can live on 1 level. , Bebeto, is healthcare power of [place] attorney. Patient still drives and currently is Indep with all self cares and IADLs. Spouse is very supportive and will do all IADLs, provide patient with transportation and assist with all ADLs that patient needs help with. Patient wears bilateral LE Lymphedema stockings that spouse will need to clay/doff for patient while she is in a sling/ recovering. Patient was pleasant, alert, orientated, asked great questions in session, was an active listener to information presented and showed signs of motivation/willingness to follow the presented protocol/ Post-op Instructions & HEP. In session today, patient was provided with resources and education as well as given handouts on the following topics: home modifications/ suggested set-up, potential DME needs and where to purchase items, fall prevention, home safety. The patient was a pleasure to work with today and reported at the end of session feeling more prepared for upcoming surgery. Occupational Therapy Treatment Plan - OP Potential Rehabilitation Potential Excellent Barriers Barriers to goal attainment None Noted Set Goals Goals Set with Patient Yes Goals Goals 1. Patient will be able to properly clay/doff her shoulder sling Independently. 2. Patient will demonstrate how to accurately perform her post-op HEP with use of handout (Modified Indep). Target Date 1 treatment session Treatment Plan Treatment Plan Evaluation,Therapeutic Exercise,Education Expected Frequency 1 visit Expected Duration 1 visit Expected Duration Comments EVAL ONLY Home Program Home Program Home Program Initiated Home Program Specifics Supported Elbow (AROM) 3 sets x10 repetitions daily Wrist Circles (AROM) 3 sets x10 repetitions daily Seated Straight Fist (AROM) 3 sets x10 repetitions daily Finger Spreading 3 sets x10 repetitions daily Seated Shoulder Flexion (AAROM ) 3 sets x10 repetitions daily Seated Shoulder Flexion and Side to Side (AAROM) 3 sets x10 repetitions daily If you?ve had a total shoulder replacement, there are some positions your surgeon may recommend you avoid during your recovery to protect your shoulder as it heals. It is important to follow these precautions and any other instructions your health care team gives you to allow your shoulder to heal properly. 1. Make sure to wear your sling as directed by your healthcare provider. Generally , it?s a good idea to keep your sling on at all times, except during self-care or when performing your home exercises. ? Always wear your sling while walking, standing, sleeping, or when you?re outside or in crowds. Wearing your sling around others alerts those around you to be cautious around your operated arm. It also helps avoid someone accidentally bumping or striking your arm. ? If you?re sitting or lying down at home, you may be allowed to take off your sling . Just be careful to keep your elbow tucked in to your side whenever you?re out of your sling. 2. Do not lift or carry anything with your operated arm that weighs more than one pound. This is about the weight of a coffee cup. Eating , drinking, and using a remote control are okay. 3. Do not bear weight through your operated arm, such as when pushing up from a chair. ? If you use a walker, it?s best to use a cane or hemiwalker while your shoulder recovers. These devices can be used with your non- operative arm. 4. At first, you may find it more comfortable to sleep in a recliner. However, you may also sleep in a bed with a folded towel or sheet propped up behind your shoulder and upper arm for support. 5. Do not let your forearm or hand move out to the side. Gentle use of your elbow, wrist, and hand on your operated arm is okay as long as your arm is at your side and you keep your elbow in front of you. Your precautions may be different depending on your surgeon or rehab facility. Be sure to follow the instructions your health care team gives you. If you have any questions about which positions and movements to avoid, contact your healthcare provider. Certification Certification Statement I Certify That: Therapy Services Provided, Therapy Plan Established, Therapy Plan Reviewed Certification Information Clinic ID # [id number] Initial Certification Date 04/17/24 Recertification Due Date 04/19/24 Provider Signature Required Yes Provider Signature Shows Agreement With POC & Medical Necessity Physician NPI Number Write NPI# Here Physician Comment/Change Comment or Changes Physician Signature & Date Requested Please Sign/Date Here
--- NOTE | 2024-05-22 12:55 | PT.OPE ---
PT [place] Outpatient Eval PT [facility] Outpatient Eval Start: 05/22/24 11:01 Freq: Status: Active Protocol: Document 05/22/24 11:01 THEO (Rec: 05/22/24 11:18 THEO [id number]) E-signed By Addison Quarles, PT, ATC Physical Therapy Outpatient Evaluation Insurance Information Insurance Name Medicare B,[employer] [facility] [employer] Z96.611 Presence of right artificial shoulder joint Reverse R shoulder TSA Treating Diagnosis R shoulder pain R shoulder ROM and strength deficits. Referring MD García Subjective Preferred Name Adelina Subjective Because of chronic R shoulder discomfort and challenges with R arm usage, Adelina received her Reverse R Shld TSA on 05/09. She is happy with the immediate reduction in pain saying her average daily discomfort is between a 0-1/10 and it elevates to a 4/10 with active movements. She is sleeping through the night comfortably with only mild discomfort when adjusting sleeping positions. She discontinued the use of her pain medication last week and uses Tylenol intermittently as needed. She remains in the sling 50% of the day when at home yet uses when going outside to appt.s. Able to shower yet needs assistance with certain areas because of the R shoulder ROM restrictions. Date of Surgery (If applicable) 05/09/24 Current Work Status Retired Precautions Treatment Precautions/Contraindications No IR past 0 degrees. No active or AAROM for 6 weeks s/p surgery. Therapy Limitations/Systems Review Not Limited Objective Range of Motion PROM R shld: FLEX 90, ABD 90, ER 0, IR 30 PROM L shld WNL's all patterns . Strength Not tested in R shld, L 5/5. Swelling Mild generalized swelling in R shld and upper arm. Palpation Incisional tenderness. Muscle spasm presence in the R upper trapezius, pectoralis and post cuff muscles. Other/Pertinent Objective Excessive guarding with all PROM, multiple VC'ing required to relax. Assessment Assessment/Impression Adelina is a pleasant 68 year old female who is well known in PT from previous surgeries and subsequent rehabilitation. She appears to be healing normally with typical limitations with passive and active R shoulder ROM. Skilled PT is certainly recommended following this TSA procedure as she will need assistance with return to all self care, ADL and driving activities. Her previous sessions in PT have demonstrated her ability for active listening, maintenance with restrictions and willingness for participation with home program ex.s. Primary Functional Limitations All ADL's requiring R upper extremity usage. Driving. Sleeping Plan of Care Rehabilitation Potential Good Physical Therapy Goals 1.Independent and correct performance with her ROM and strength programs as she is advanced through the TSA protocol. 2.Active FLEX to 120 degrees permitting ease with stacking of light items onto shelves. 3.Able to dress self, bath and bathroom with ease, independence and pain of 0/10. 4.Improve R shld strength to 3 +/5 in all patterns permitting safe return to independent driving. Coordination/Communication With Referral Source Treatment Plan/Direct Interventions Joint Mobilization,Manual Therapy,Neuromuscular Re-ed, Self-Care/Home Management, Therapeutic Activities, Therapeutic Exercises Frequency/Duration 1-2x per week 8-16 weeks Patient Will Be Discharged From Therapy Independent w/HEP, Independently Progressing Evaluation Billing Untimed Code Treatment Minutes 30 PT Eval No Charge No Complexity Low Certification Information Initial Certification Date 05/22/24 Ending Certification Date 08/20/24 Provider Signature Required Yes Provider Signature Shows Agreement With POC & Medical Necessity Physician NPI Number Write NPI# Here Physician Comment/Change : Physician Signature & Date Requested Please Sign/Date Here
== END 2024-08-16 14:32 | disposition home or self-care (01) ==
PROVIDERS: PCP Family Medicine; Visit Provider Orthopaedic Surgery
DX: Z51.89 Encounter for other specified aftercare (principal); M19.011 Primary osteoarthritis, right shoulder
CPT/HCPCS: 97110; 97140; 97161; 97165; X5282

== ENCOUNTER 2025-02-21 16:55 | Outpatient (CLI) | payer MEDICARE, SELFPAY | END 2025-02-21 16:56 | disposition home or self-care (01) | LOC: NFLDREF 02-23 03:28 | PROVIDERS: PCP Family Medicine; Referring Provider Family Medicine; Visit Provider Physician Assistant | DX: M54.50 Low back pain, unspecified (principal) | CPT/HCPCS: 87086 ==